=== PATIENT | male | born 1935 | race Caucasian/White ===

== ENCOUNTER 2016-06-22 14:17 | Emergency (ER) | payer MEDICARE, OTHER ==
[2016-06-22 14:36] VITALS: BP 150/85
[2016-06-22] MEDS ORDERED: NS 0.9% 1000 ML* 1,000 ML IV ONE (14:49)
--- NOTE | 2016-06-22 15:25 | RAD ---
Indication: Hematuria. Decubitus views and upright views of the abdomen demonstrate no free air. Stool is present throughout the right colon. No evidence of radiopaque calculi is noted. IMPRESSION: No free air or obstruction is noted. No abnormal calcifications are identified.
[2016-06-22 15:46] LABS: Hematocrit 50 % (42-52); Hemoglobin 16.4 g/dl (14.0-18.0); Mean Corpuscular HGB Conc 33 g/dl (31-36); Mean Corpuscular Hemoglobin 31 pg (27-31); Mean Corpuscular Volume 93 fL (80-94); Mean Platelet Volume 10 um3 (7.4-10.4); Red Blood Count 5.35 10^6/ul (4.0-5.4); Red Cell Distribution Width 14 % (10.5-15)
[2016-06-22 16:05] LABS: Chloride 101 mmol/L (101-111); Potassium 4.2 mmol/L (3.5-5.0); Sodium 136 mmol/L (133-145)
[2016-06-22 16:31] LABS: Troponin I 0.03 ng/mL (<0.04)
[2016-06-22 16:47] LABS: ALT 8 U/L (7-52); AST 16 U/L (13-39); Albumin 3.6 g/dL (3.2-5.2); Alkaline Phosphatase 82 U/L (34-104); Anion Gap 8 mmol/L (2-11); BUN/Creatinine Ratio 16.8 (8-20); Blood Urea Nitrogen 16 mg/dL (6-24); C Reactive Protein 1.45 mg/L (< 5.00); CO2 Carbon Dioxide 27 mmol/L (22-32); Calcium 11.1 mg/dL (8.6-10.3); Creatine Kinase 19 U/L (10-223); EGFR African American 97.9 (>60); EGFR Non-African American 76.1 (>60); Globulin 3.2 g/dL (2-4); Glucose 84 mg/dL (70-100); Lipase < 10 U/L (11.0-82.0); Magnesium 1.8 mg/dL (1.9-2.7); Total Protein 6.8 g/dL (6.4-8.9)
[2016-06-22 16:47] LABS: Urine Bacteria Absent (Absent); Urine Bilirubin Negative (Negative); Urine Glucose Negative (Negative); Urine Nitrite Negative (Negative)
[2016-06-22] MEDS ORDERED: Ciprofloxacin 400MG IVPREMIX(* 400 MG/200 ML BAG IVPB ONE (17:04)
--- NOTE | 2016-06-22 19:10 | ED ---
Brian Vazquez Billy, scribed for Errol Duran MD on 06/22/16 at 1444 . GI/ HPI - HPI Summary HPI Summary: Patient is an 81 year-old male coming to [facility] presenting with intermittent hematuria for 1 month. He denies any pain at this time. Nothing has made his symptoms better or worse. Denies fevers, chills, weakness, CP, SOB, abdominal pain, or any other symptoms. - History of Current Complaint Chief Complaint: EDGeneral Time Seen by Provider: 06/22/16 14:32 Stated Complaint: BLOOD IN URINE Hx Obtained From: Patient Onset/Duration: Started Weeks Ago, Still Present Timing: Intermittent Severity: Moderate Current Severity: Moderate Pain Intensity: 0 Associated Signs and Symptoms: Positive: Negative Aggravating Factor(s): Nothing Alleviating Factor(s): Nothing - Allergy/Home Medications Allergies/Adverse Reactions: Allergies Allergy/AdvReac Type Severity Reaction Status Date / Time No Known Allergies Allergy Verified 10/07/13 18:43 PMH/Surg Hx/FS Hx/Imm Hx Endocrine/Hematology History: Reports: Hx Anticoagulant Therapy - pt states he is on coumadin Denies: Hx Blood Disorders, Hx Blood Transfusions, Hx Bone Marrow Disease, Hx Diabetes, Hx Systemic Lupus Erythematosus, Hx Sickle Cell Disease, Hx Thyroid Disease, Hx Anemia, Hx Unexplained Bleeding, Other Endocrine/ Hematological Disorders Cardiovascular History: Denies: Hx Hypertension - NO HX OF Respiratory History: Reports: Hx Asthma - as a child; not active now, Hx Pleural Effusion GI History: Reports: Hx Gastrointestinal Bleed - current GI Bleed History: Reports: Hx Benign Prostatic Hyperplasia Denies: Hx Renal Disease Musculoskeletal History: Reports: Hx Back Problems, Hx Bursitis, Hx Orthopedic Injury - hx finger fx, L ankle fx, Other Musculoskeletal History - L hip fracture repair Denies: Hx Arthritis, Hx Fibromyalgia, Hx Gout, Hx Osteoporosis, Hx Scoliosis , Hx Tendonitis Sensory History: Reports: Hx Contacts or Glasses Opthamlomology History: Reports: Hx Contacts or Glasses - Cancer History Hx Chemotherapy: No Hx Radiation Therapy: No Hx Palliative Cancer Treatment: No - Surgical History Surgery Procedure, Year, and Place: hernia R abd 2001; LEFT ORIF; L ankle repair Hx Anesthesia Reactions: No Infectious Disease History: Denies: Traveled Outside the [place] in Last 30 Days - Family History Family History: Patient does not believe his parents had any chronic illnesses. - Social History Lives: With Family - sister Alcohol Use: None Substance Use Type: Reports: None Smoking Status (MU): Never Smoked Tobacco Have You Smoked in the Last Year: No Review of Systems Negative: Fever, Chills Negative: Chest Pain Negative: Shortness Of Breath Negative: Abdominal Pain Positive: hematuria All Other Systems Reviewed And Are Negative: Yes Physical Exam - Summary Physical Exam Summary: VITAL SIGNS: Reviewed. GENERAL: Patient is a cachectic male lying confortable in the strecher. . Patient is not in any acute respiratory distress. HEAD AND FACE: No signs of trauma. No ecchymosis, hematomas or skull depressions. EYES: PERRLA, EOMI x 2, No injected conjunctiva, no nystagmus. EARS: Hearing grossly intact. Ear canals and tympanic membranes are within normal limits. MOUTH: Dry oral mucosa NECK: Supple, trachea is midline, no adenopathy, no JVD CHEST: Symmetric, no tenderness at palpation LUNGS: Clear to auscultation bilaterally. No wheezing or crackles. CVS: Regular rate and rhythm, S1 and S2 present, no murmurs or gallops appreciated. ABDOMEN: Soft, non-tender. No signs of distention. No rebound no guarding, and no masses palpated. Bowel sounds are normal. EXTREMITIES: FROM in all major joints, no edema, no cyanosis or clubbing. NEURO: Alert and oriented x 3. No acute neurological deficits. Speech is normal and follows commands. SKIN: Dry and warm Triage Information Reviewed: Yes Vital Signs On Initial Exam: Initial Vitals Temp Pulse Resp BP Pulse Ox 96.5 F 85 10 150/85 98 06/22/16 14:30 06/22/16 14:30 06/22/16 14:30 06/22/16 14:30 06/22/16 14:30 Vital Signs Reviewed: Yes Diagnostics - Vital Signs Vital Signs Temp Pulse Resp BP Pulse Ox 06/22/16 14:30 96.5 F 85 10 150/85 98 - Laboratory Lab Results: Lab Results 06/22/16 06/22/16 06/22/16 Range/Units 15:39 15:39 15:39 WBC 10.0 (3.5-10.8) 10^3/ul RBC 5.35 (4.0-5.4) 10^6/ul Hgb 16.4 (14.0-18.0) g/dl Hct 50 (42-52) % MCV 93 (80-94) fL MCH 31 (27-31) pg MCHC 33 (31-36) g/dl RDW 14 (10.5-15) % Plt Count 121 L (150-450) 10^3/ul MPV 10 (7.4-10.4) um3 Neut % (Auto) 79.0 (38-83) % Lymph % (Auto) 11.2 L (25-47) % [place] % (Auto) 7.2 (1-9) % Eos % (Auto) 2.0 (0-6) % Baso % (Auto) 0.6 (0-2) % Absolute Neuts (auto) 7.9 H (1.5-7.7) 10^3/ul Absolute Lymphs (auto) 1.1 (1.0-4.8) 10^3/ul Absolute Monos (auto) 0.7 (0-0.8) 10^3/ul Absolute Eos (auto) 0.2 (0-0.6) 10^3/ul Absolute Basos (auto) 0.1 (0-0.2) 10^3/ul Absolute Nucleated RBC 0.01 10^3/ul Nucleated RBC % 0.1 Sodium 136 (133-145) mmol/L Potassium 4.2 (3.5-5.0) mmol/L Chloride 101 (101-111) mmol/L Carbon Dioxide Pending Anion Gap Pending BUN Pending Creatinine Pending Est GFR ( Amer) Pending Est GFR (Non-Af Amer) Pending BUN/Creatinine Ratio Pending Glucose Pending Calcium Pending Magnesium Pending Total Bilirubin Pending AST Pending ALT Pending Alkaline Phosphatase Pending Total Creatine Kinase Pending Troponin I Pending C-Reactive Protein Pending B-Natriuretic Peptide 174 H ( - 100) pg/mL Total Protein Pending Albumin Pending Globulin Pending Albumin/Globulin Ratio Pending Lipase Pending Result Diagrams: 06/22/16 15:39 06/22/16 15:39 Lab Statement: Any lab studies that have been ordered have been reviewed, and results considered in the medical decision making process. - Radiology abd xr Radiology Interpretation Completed By: Radiologist - No free air or obstruction is noted. No abnormal calcifications are identified. - EKG 1545 EKG Interpretation: afib 48 bpm, ST depressions in V4-V6. GIGU Course/Dx - Course Assessment/Plan: Patient is an 81 year-old male coming to [facility] presenting with intermittent hematuria for 1 month. He denies any pain at this time. Nothing has made his symptoms better or worse. Denies fevers, chills, weakness, CP, SOB , abdominal pain, or any other symptoms. Bloodwork WNL except for platelets of 121, calcium 11.1, and magnesium 11.8. Trop is 0.03. UA 2+ protein, 3+ blood, increased RBC. Abdominal X-ray shows no acute pathology. Because of the urinary symptoms, I decided to place the patient on antibiotics. The patient is feeling better. He was hydrated. He is eating/drinking and ambulating on his own. Therefore he will be discharged home to follow up with PCP. He was instructed to return to the ER with any developing fevers, chills, hematuria, or any other complaints. He is hemodynamically stable, A&Ox3. - Diagnoses Differential Diagnoses - Male: Other - Hematuria, UTI Provider Diagnoses: Urinary tract infection - Physician Notifications Discussed Care Of Patient With: Dr. Canales (hospitalist) @ [id number]: informed of the patient's presentation. Discharge - Discharge Plan Condition: Stable Disposition: HOME Prescriptions: Ciprofloxacin TAB* [Cipro Tab*] 500 mg PO BID #10 tab Patient Education Materials: Urinary Tract Infection in Men (ED) Referrals: Hoda Norton MD [Primary Care Provider] - The documentation as recorded by the Brian collins Billy accurately reflects the service I personally performed and the decisions made by me, Errol Duran MD.
== END 2016-06-22 20:31 | disposition home or self-care (01) ==
LOC: ED 14:17
DX: N39.0 Urinary tract infection, site not specified (principal); R31.9 Hematuria, unspecified
CPT/HCPCS: 36415; 74020; 80053; 81003; 81015; 82550; 83605; 83690; 83735; 83880; 84484; 85025; 86140; 87077; 87086; 87186; 93005; 96365; 99282; J0744

== ENCOUNTER 2016-07-02 12:33 | Emergency (ER) | payer MEDICARE, OTHER ==
[2016-07-02 13:49] LABS: Hematocrit 45 % (42-52); Hemoglobin 14.8 g/dl (14.0-18.0); Mean Corpuscular HGB Conc 33 g/dl (31-36); Mean Corpuscular Hemoglobin 31 pg (27-31); Mean Corpuscular Volume 93 fL (80-94); Mean Platelet Volume 10 um3 (7.4-10.4); Red Blood Count 4.79 10^6/ul (4.0-5.4); Red Cell Distribution Width 14 % (10.5-15); White Blood Count 6.3 10^3/ul (3.5-10.8)
[2016-07-02 14:00] LABS: BUN/Creatinine Ratio 15.7 (8-20); Calcium 10.9 mg/dL (8.6-10.3); EGFR African American 90.1 (>60); EGFR Non-African American 70.1 (>60); Potassium 3.8 mmol/L (3.5-5.0)
[2016-07-02] MEDS ORDERED: Sulfamethox/Trimethoprim DS 800/160* TAB PO ONE (15:04)
[2016-07-02 16:51] LABS: Urine Bacteria Absent (Absent); Urine Bilirubin Negative (Negative); Urine Glucose Negative (Negative); Urine Nitrite Negative (Negative)
[2016-07-02 17:02] VITALS: BP 120/72
--- NOTE | 2016-07-07 07:07 | PN ---
Progress Note - Progress Note Note: Patient blood cultures grew Staphylococcus epidermidis which could be contaminant. Patient placed on Bactrim at d/c which will cover this organism and the UTI so no further action needed.
--- NOTE | 2016-07-14 21:13 | ED ---
Clarke Vazquez Soohyun, scribed for Felipe Machuca MD on 07/02/16 at 1454 . GI/ HPI - HPI Summary HPI Summary: This 81 y/o male presents to ED for blood noted in Malloy today. Pt was seen 10 days ago for UTI and was sent home with Cipro. Pt is currently denying any fever , abd pain, or n/v/d. 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 Wil blood is noted in Malloy and urine bag without any clot is noted at time of initial evaluation. Per EMR from 06/22/2016, pt is currently on Coumadin. - History of Current Complaint Chief Complaint: EDUrogenitalProblems Time Seen by Provider: 07/02/16 13:21 Stated Complaint: BLOOD IN CATHETER Hx Obtained From: Patient, Medical Records Onset/Duration: Started Weeks Ago, Atraumatic, Still Present Timing: Constant Pain Intensity: 0 Location of Pain: None Associated Signs and Symptoms: Positive: Hematuria. Negative: Nausea, Vomiting , Fever, Abdominal Pain - Allergy/Home Medications Allergies/Adverse Reactions: Allergies Allergy/AdvReac Type Severity Reaction Status Date / Time No Known Allergies Allergy Verified 10/07/13 18:43 PMH/Surg Hx/FS Hx/Imm Hx Endocrine/Hematology History: Reports: Hx Anticoagulant Therapy - pt states he is on coumadin Denies: Hx Blood Disorders, Hx Blood Transfusions, Hx Bone Marrow Disease, Hx Diabetes, Hx Systemic Lupus Erythematosus, Hx Sickle Cell Disease, Hx Thyroid Disease, Hx Anemia, Hx Unexplained Bleeding, Other Endocrine/ Hematological Disorders Cardiovascular History: Denies: Hx Hypertension - NO HX OF Respiratory History: Reports: Hx Asthma - as a child; not active now, Hx Pleural Effusion GI History: Reports: Hx Gastrointestinal Bleed - current GI Bleed History: Reports: Hx Benign Prostatic Hyperplasia Denies: Hx Renal Disease Musculoskeletal History: Reports: Hx Back Problems, Hx Bursitis, Hx Orthopedic Injury - hx finger fx, L ankle fx, Other Musculoskeletal History - L hip fracture repair Denies: Hx Arthritis, Hx Fibromyalgia, Hx Gout, Hx Osteoporosis, Hx Scoliosis , Hx Tendonitis Sensory History: Reports: Hx Contacts or Glasses Opthamlomology History: Reports: Hx Contacts or Glasses - Cancer History Hx Chemotherapy: No Hx Radiation Therapy: No Hx Palliative Cancer Treatment: No - Surgical History Surgery Procedure, Year, and Place: hernia R abd 2002; LEFT ORIF; L ankle repair Hx Anesthesia Reactions: No Infectious Disease History: No Infectious Disease History: Denies: Traveled Outside the [place] in Last 30 Days - Family History Known Family History: Negative: Cardiac Disease, Hypertension, Diabetes Family History: Patient does not believe his parents had any chronic illnesses. - Social History Alcohol Use: None Hx Substance Use: No Substance Use Type: Reports: None Hx Tobacco Use: No Smoking Status (MU): Never Smoked Tobacco Have You Smoked in the Last Year: No Review of Systems Negative: Fever Negative: Blurred Vision, Erythema Negative: Sore Throat Negative: Chest Pain Negative: Shortness Of Breath, Cough Negative: Abdominal Pain Positive: hematuria - malloy cath noted with blood Negative: Myalgia, Edema Neurological: Other - negative dizziness Negative: Anxious, Depressed All Other Systems Reviewed And Are Negative: Yes Physical Exam - Summary Physical Exam Summary: Constitutional: Well-developed, Well-nourished, Alert. (-) Distressed Skin: Warm, Dry HENT: Normocephalic; Atraumatic Eyes: Conjunctiva normal Neck: Musculoskeletal ROM normal neck. (-) JVD, (-) Stridor, (-) Tracheal deviation Cardio: Rhythm regular, rate normal, Heart sounds normal; Intact distal pulses; The pedal pulses are 2+ and symmetric. Radial pulses are 2+ and symmetric. (-) Murmur Pulmonary/Chest wall: Effort normal. (-) Respiratory distress, (-) Wheezes, (-) Rales Abd: Soft, (-) Tenderness, (-) Distension, (-) Guarding, (-) Rebound : Wil blood noted without clots in malloy cath and urine bag. Musculoskeletal: (-) Edema Lymph: (-) Cervical adenopathy Neuro: Alert, Oriented x3 Psych: Mood and affect Normal Triage Information Reviewed: Yes Vital Signs On Initial Exam: Initial Vitals Temp Pulse Resp BP Pulse Ox 97.4 F 51 18 144/80 98 07/02/16 13:36 07/02/16 13:36 07/02/16 13:36 07/02/16 13:36 07/02/16 13:36 Vital Signs Reviewed: Yes Diagnostics - Vital Signs Vital Signs Temp Pulse Resp BP Pulse Ox 07/02/16 13:36 97.4 F 51 18 144/80 98 - Laboratory Lab Results: Lab Results 07/02/16 07/02/16 Range/Units 13:20 13:20 WBC 6.3 (3.5-10.8) 10^3/ul RBC 4.79 (4.0-5.4) 10^6/ul Hgb 14.8 (14.0-18.0) g/dl Hct 45 (42-52) % MCV 93 (80-94) fL MCH 31 (27-31) pg MCHC 33 (31-36) g/dl RDW 14 (10.5-15) % Plt Count 121 L (150-450) 10^3/ul MPV 10 (7.4-10.4) um3 Sodium 139 (133-145) mmol/L Potassium 3.8 (3.5-5.0) mmol/L Chloride 103 (101-111) mmol/L Carbon Dioxide 32 (22-32) mmol/L Anion Gap 4 (2-11) mmol/L BUN 16 (6-24) mg/dL Creatinine 1.02 (0.67-1.17) mg/dL Est GFR ( Amer) 90.1 (>60) Est GFR (Non-Af Amer) 70.1 (>60) BUN/Creatinine Ratio 15.7 (8-20) Glucose 94 (70-100) mg/dL Calcium 10.9 H (8.6-10.3) mg/dL Result Diagrams: 07/02/16 13:20 07/02/16 13:20 Lab Statement: Any lab studies that have been ordered have been reviewed, and results considered in the medical decision making process. GIGU Course/Dx - Diagnoses Provider Diagnoses: Hemorrhagic cystitis - Physician Notifications Discussed Care Of Patient With: Dr. Monzon (Urologist) at 1502 PM -- recommends finding out who put in the malloy cath, removing Malloy, changing Abx, and discontinuing Pradexa if in agreement with manager stone. Dr. Meadows (PCP) at 1610 PM -- agrees that pt can discontinue pradexa for next several days. Abx is changed from Cipro to Bactrim. Pt is to follow up with Dr. Meadows in next 3-4 days. Pt and his family are informed with increased risk of CVA with discontinued anticoagulants. They express understanding. Time Discussed With Above Provider: 15:02 Discharge - Discharge Plan Condition: Stable Disposition: HOME Prescriptions: Sulfamethox/Trimethoprim DS* [Bactrim DS 800/160 TAB*] 1 tab PO BID #20 tab Patient Education Materials: Malloy Catheter Placement and Care (ED), Urinary Tract Infection in Men (ED) Referrals: Hoda Norton MD [Primary Care Provider] - The documentation as recorded by the Clarke collins Soohyun accurately reflects the service I personally performed and the decisions made by Sven iverson Jerry, MD.
== END 2016-07-02 16:57 | disposition home or self-care (01) ==
LOC: ED 12:33
DX: N30.90 Cystitis, unspecified without hematuria (principal); Z79.01 Long term (current) use of anticoagulants; N40.0 Benign prostatic hyperplasia without lower urinary tract symptoms; I48.91 Unspecified atrial fibrillation; I69.354 Hemiplegia and hemiparesis following cerebral infarction affecting left non-dominant side
CPT/HCPCS: 36415; 80048; 81003; 81015; 85027; 85610; 85730; 87040; 87077; 87150; 87205; 99282; A9270-GY

== ENCOUNTER 2016-07-14 11:15 | Inpatient (IN) | payer MEDICARE, OTHER ==
[2016-07-14 12:16] LABS: Hematocrit 47 % (42-52); Hemoglobin 15.5 g/dl (14.0-18.0); Mean Corpuscular HGB Conc 33 g/dl (31-36); Mean Corpuscular Hemoglobin 31 pg (27-31); Mean Corpuscular Volume 93 fL (80-94); Mean Platelet Volume 10 um3 (7.4-10.4); Red Blood Count 4.99 10^6/ul (4.0-5.4); Red Cell Distribution Width 15 % (10.5-15); White Blood Count 6.5 10^3/ul (3.5-10.8)
[2016-07-14 12:31] LABS: ALT 7 U/L (7-52); AST 13 U/L (13-39); Albumin 3.6 g/dL (3.2-5.2); Alkaline Phosphatase 77 U/L (34-104); Anion Gap 4 mmol/L (2-11); BUN/Creatinine Ratio 14.9 (8-20); Blood Urea Nitrogen 17 mg/dL (6-24); C Reactive Protein < 1.00 mg/L (< 5.00); CO2 Carbon Dioxide 29 mmol/L (22-32); Calcium 10.9 mg/dL (8.6-10.3); Chloride 102 mmol/L (101-111); Creatine Kinase 17 U/L (10-223); EGFR African American 79.3 (>60); EGFR Non-African American 61.7 (>60); Glucose 82 mg/dL (70-100); Lipase < 10 U/L (11.0-82.0); Magnesium 1.7 mg/dL (1.9-2.7); Potassium 4.2 mmol/L (3.5-5.0); Sodium 135 mmol/L (133-145); Total Protein 6.6 g/dL (6.4-8.9)
[2016-07-14 12:33] LABS: Troponin I 0.02 ng/mL (<0.04)
[2016-07-14 12:38] LABS: Urine Bacteria Absent (Absent); Urine Bilirubin Negative (Negative); Urine Glucose Negative (Negative); Urine Nitrite Negative (Negative)
[2016-07-14] MEDS ORDERED: Magnesium Sulfate 2 GM IV* 2 GM/50 ML BAG IVPB ONE (12:38)
--- NOTE | 2016-07-14 12:41 | RAD ---
INDICATION: Weakness. COMPARISON: Comparison is made with a prior CT of the brain from July 10, 2013. TECHNIQUE: Contiguous axial sections of the brain were obtained from the skull base to the vertex without contrast. FINDINGS: The ventricles, cisterns and sulci are enlarged consistent with diffuse atrophy. There are old lacunar infarcts present within the right lentiform nucleus and right periventricular white matter. In addition there are multiple small areas of decreased attenuation in the periventricular and subcortical white matter most consistent with mild chronic small vessel ischemic changes. No other focal abnormalities or mass effect are seen. There is no evidence for hemorrhage. No significant focal osseous abnormality is seen. The visualized portion of the paranasal sinuses and mastoid air cells appear clear. IMPRESSION: 1. NO EVIDENCE FOR ACUTE FINDING. 2. 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
--- NOTE | 2016-07-14 12:47 | RAD ---
INDICATION: Weakness. COMPARISON: Comparison is made with a prior chest x-ray study from October 07, 2013. TECHNIQUE: A portable view of the chest was obtained. FINDINGS: The heart appears moderately enlarged and unchanged from the prior exam. There is elevation of the right hemidiaphragm which is a unchanged. The lungs appear grossly clear. No pleural effusion is seen. IMPRESSION: NO EVIDENCE FOR ACUTE FINDING.
[2016-07-14] MEDS ORDERED: Ondansetron INJ* 2 MG/ML VIAL IV PRN (13:37)
[2016-07-14] MEDS ORDERED: Acetaminophen TAB* 325 MG PO PRN (13:37)
--- NOTE | 2016-07-14 14:19 | ED ---
Clarke Vazquez Soohyun, scribed for Clinton Andino MD on 07/14/16 at 1204 . Complex/Multi-Sys Presentation - HPI Summary HPI Summary: This 81 y/o male presents to ED for persistent general weakness since 2 weeks ago. Pt states that he "can't walk", but denies any dysuria, chest congestion, fever, or chills. He appears to be able to move all extremities at time of initial evaluation. PMHx includes left sided CVA, a-fib, left hip repair, poor balance, and indwelling catheter. Pt currently lives with his sister. Plan of care involving possible admission is discussed with pt. - History Of Current Complaint Time Seen by Provider: 07/14/16 11:18 Hx Obtained From: Patient, Medical Records Onset/Duration: Lasting Weeks - 2 weeks ago, Still Present Timing: Constant Severity Currently: Moderate Severity Initially: Moderate Associated Signs And Symptoms: Positive: Weakness - general. Negative: Dysuria - Allergies/Home Medications Allergies/Adverse Reactions: Allergies Allergy/AdvReac Type Severity Reaction Status Date / Time No Known Allergies Allergy Verified 07/14/16 11:51 PMH/Surg Hx/FS Hx/Imm Hx Endocrine/Hematology History: Reports: Hx Anticoagulant Therapy - pt states he is on coumadin Denies: Hx Blood Disorders, Hx Blood Transfusions, Hx Bone Marrow Disease, Hx Diabetes, Hx Systemic Lupus Erythematosus, Hx Sickle Cell Disease, Hx Thyroid Disease, Hx Anemia, Hx Unexplained Bleeding, Other Endocrine/ Hematological Disorders Cardiovascular History: Denies: Hx Hypertension - NO HX OF Respiratory History: Reports: Hx Asthma - as a child; not active now, Hx Pleural Effusion GI History: Reports: Hx Gastrointestinal Bleed - current GI Bleed History: Reports: Hx Benign Prostatic Hyperplasia Denies: Hx Renal Disease Musculoskeletal History: Reports: Hx Back Problems, Hx Bursitis, Hx Orthopedic Injury - hx finger fx, L ankle fx, Other Musculoskeletal History - L hip fracture repair Denies: Hx Arthritis, Hx Fibromyalgia, Hx Gout, Hx Osteoporosis, Hx Scoliosis , Hx Tendonitis Sensory History: Reports: Hx Contacts or Glasses Opthamlomology History: Reports: Hx Contacts or Glasses - Cancer History Hx Chemotherapy: No Hx Radiation Therapy: No Hx Palliative Cancer Treatment: No - Surgical History Surgery Procedure, Year, and Place: hernia R abd 2002; LEFT ORIF; L ankle repair Hx Anesthesia Reactions: No - Family History Family History: Patient does not believe his parents had any chronic illnesses. - Social History Alcohol Use: None Substance Use Type: Reports: None Smoking Status (MU): Never Smoked Tobacco Have You Smoked in the Last Year: No Review of Systems Negative: Fever, Chills Neurological: Other - Positive -- "can't walk" Positive: Weakness - general Negative: Anxious, Depressed All Other Systems Reviewed And Are Negative: Yes Physical Exam Triage Information Reviewed: Yes Vital Signs On Initial Exam: Initial Vitals Temp Pulse Resp BP Pulse Ox 97.1 F 48 22 130/73 99 07/14/16 11:18 07/14/16 11:18 07/14/16 11:18 07/14/16 11:18 07/14/16 11:18 Vital Signs Reviewed: Yes Appearance: Positive: Ill-Appearing - mildly Skin: Positive: Cold Head/Face: Positive: Normal Head/Face Inspection Eyes: Positive: EOMI, CORDELL ENT: Positive: Other - dry oral mucosa Respiratory/Lung Sounds: Positive: Clear to Auscultation, Breath Sounds Present Cardiovascular: Positive: RRR, Pulses are Symmetrical in both Upper and Lower Extremities Musculoskeletal: Positive: Strength/ROM Intact - COELLO Neurological: Positive: Sensory/Motor Intact - COELLO, Alert, Oriented to Person Place, Time. Negative: Focal Deficit @ Psychiatric: Positive: Affect/Mood Appropriate AVPU Assessment: Alert Diagnostics - Vital Signs Vital Signs Temp Pulse Resp BP Pulse Ox 07/14/16 14:11 97.3 F 46 14 114/58 07/14/16 14:00 114/58 07/14/16 13:44 14 153/127 07/14/16 13:00 24 07/14/16 12:30 17 07/14/16 11:47 97.2 F 48 14 125/64 97 07/14/16 11:18 97.1 F 48 22 130/73 99 - Laboratory Lab Results: Lab Results 07/14/16 07/14/16 07/14/16 Range/Units 12:05 12:05 12:05 WBC 6.5 (3.5-10.8) 10^3/ul RBC 4.99 (4.0-5.4) 10^6/ul Hgb 15.5 (14.0-18.0) g/dl Hct 47 (42-52) % MCV 93 (80-94) fL MCH 31 (27-31) pg MCHC 33 (31-36) g/dl RDW 15 (10.5-15) % Plt Count 142 L (150-450) 10^3/ul MPV 10 (7.4-10.4) um3 Neut % (Auto) 74.0 (38-83) % Lymph % (Auto) 13.6 L (25-47) % [place] % (Auto) 7.4 (1-9) % Eos % (Auto) 3.8 (0-6) % Baso % (Auto) 1.2 (0-2) % Absolute Neuts (auto) 4.8 (1.5-7.7) 10^3/ul Absolute Lymphs (auto) 0.9 L (1.0-4.8) 10^3/ul Absolute Monos (auto) 0.5 (0-0.8) 10^3/ul Absolute Eos (auto) 0.2 (0-0.6) 10^3/ul Absolute Basos (auto) 0.1 (0-0.2) 10^3/ul Absolute Nucleated RBC 0 10^3/ul Nucleated RBC % 0.1 INR (Anticoag Therapy) 1.91 H (0.89-1.11) APTT 85.1 H (26.0-36.3) seconds Sodium (133-145) mmol/L Potassium (3.5-5.0) mmol/L Chloride (101-111) mmol/L Carbon Dioxide (22-32) mmol/L Anion Gap (2-11) mmol/L BUN (6-24) mg/dL Creatinine (0.67-1.17) mg/dL Est GFR ( Amer) (>60) Est GFR (Non-Af Amer) (>60) BUN/Creatinine Ratio (8-20) Glucose (70-100) mg/dL Lactic Acid (0.5-2.0) mmol/L Calcium (8.6-10.3) mg/dL Magnesium (1.9-2.7) mg/dL Total Bilirubin (0.2-1.0) mg/dL AST (13-39) U/L ALT (7-52) U/L Alkaline Phosphatase (34-104) U/L Total Creatine Kinase (10-223) U/L CK-MB (CK-2) (0.6-6.3) ng/mL Troponin I (<0.04) ng/mL C-Reactive Protein (< 5.00) mg/L B-Natriuretic Peptide ( - 100) pg/mL Total Protein (6.4-8.9) g/dL Albumin (3.2-5.2) g/dL Globulin (2-4) g/dL Albumin/Globulin Ratio (1-3) Lipase (11.0-82.0) U/L TSH Urine Color [place]ia Urine Appearance Cloudy Urine pH 5.0 (5-9) Ur Specific [place] 1.014 (1.010-1.030) Urine Protein 2+(100 mg/dl) H (Negative) Urine Ketones Negative (Negative) Urine Blood 3+ H (Negative) Urine Nitrate Negative (Negative) Urine Bilirubin Negative (Negative) Urine Urobilinogen Negative (Negative) Ur Leukocyte Esterase Trace H (Negative) Urine WBC (Auto) Trace(0-5/hpf) (Absent) Urine RBC (Auto) 3+(>10/hpf) H (Absent) Ur Squamous Epith Cells Present H (Absent) Urine Bacteria Absent (Absent) Urine Glucose Negative (Negative) Urine Ascorbic Acid * H (Negative) Digoxin 07/14/16 07/14/16 07/14/16 Range/Units 12:05 12:05 12:05 WBC (3.5-10.8) 10^3/ul RBC (4.0-5.4) 10^6/ul Hgb (14.0-18.0) g/dl Hct (42-52) % MCV (80-94) fL MCH (27-31) pg MCHC (31-36) g/dl RDW (10.5-15) % Plt Count (150-450) 10^3/ul MPV (7.4-10.4) um3 Neut % (Auto) (38-83) % Lymph % (Auto) (25-47) % [place] % (Auto) (1-9) % Eos % (Auto) (0-6) % Baso % (Auto) (0-2) % Absolute Neuts (auto) (1.5-7.7) 10^3/ul Absolute Lymphs (auto) (1.0-4.8) 10^3/ul Absolute Monos (auto) (0-0.8) 10^3/ul Absolute Eos (auto) (0-0.6) 10^3/ul Absolute Basos (auto) (0-0.2) 10^3/ul Absolute Nucleated RBC 10^3/ul Nucleated RBC % INR (Anticoag Therapy) (0.89-1.11) APTT (26.0-36.3) seconds Sodium 135 (133-145) mmol/L Potassium 4.2 (3.5-5.0) mmol/L Chloride 102 (101-111) mmol/L Carbon Dioxide 29 (22-32) mmol/L Anion Gap 4 (2-11) mmol/L BUN 17 (6-24) mg/dL Creatinine 1.14 (0.67-1.17) mg/dL Est GFR ( Amer) 79.3 (>60) Est GFR (Non-Af Amer) 61.7 (>60) BUN/Creatinine Ratio 14.9 (8-20) Glucose 82 (70-100) mg/dL Lactic Acid 1.4 (0.5-2.0) mmol/L Calcium 10.9 H (8.6-10.3) mg/dL Magnesium 1.7 L (1.9-2.7) mg/dL Total Bilirubin 0.60 (0.2-1.0) mg/dL AST 13 (13-39) U/L ALT 7 (7-52) U/L Alkaline Phosphatase 77 (34-104) U/L Total Creatine Kinase 17 (10-223) U/L CK-MB (CK-2) 2.6 (0.6-6.3) ng/mL Troponin I 0.02 (<0.04) ng/mL C-Reactive Protein < 1.00 (< 5.00) mg/L B-Natriuretic Peptide 224 H ( - 100) pg/mL Total Protein 6.6 (6.4-8.9) g/dL Albumin 3.6 (3.2-5.2) g/dL Globulin 3.0 (2-4) g/dL Albumin/Globulin Ratio 1.2 (1-3) Lipase < 10 L (11.0-82.0) U/L TSH Pending Urine Color Urine Appearance Urine pH (5-9) Ur Specific [place] (1.010-1.030) Urine Protein (Negative) Urine Ketones (Negative) Urine Blood (Negative) Urine Nitrate (Negative) Urine Bilirubin (Negative) Urine Urobilinogen (Negative) Ur Leukocyte Esterase (Negative) Urine WBC (Auto) (Absent) Urine RBC (Auto) (Absent) Ur Squamous Epith Cells (Absent) Urine Bacteria (Absent) Urine Glucose (Negative) Urine Ascorbic Acid (Negative) Digoxin Pending Result Diagrams: 07/14/16 12:05 07/14/16 12:05 Lab Statement: Any lab studies that have been ordered have been reviewed, and results considered in the medical decision making process. - Radiology CXR Xray Interpretation: No Acute Changes Radiology Interpretation Completed By: Radiologist - CT Brain CT Interpretation: No Acute Changes CT Interpretation Completed By: Radiologist - EKG 1254 EKG Rhythm: Atrial Fibrillation - 51 bpm Re-Evaluation - Re-Evaluation First Eval Re-Evaluation Time: 12:54 Comment: MD in room to update pt on imaging and bloodwork results. Plan of care discussed. Complex Multi-Symp Course/Dx Assessment/Plan: ADMIT HOSPITALIST STABLE. - Diagnoses Provider Diagnoses: generalized weakness - Physician Notifications Discussed Care Of Patient With: Dr. Venegas (Hospitalist) at 1310 PM Time Discussed With Above Provider: 13:10 Discharge - Discharge Plan Condition: Guarded Disposition: ADMITTED TO [facility] Referrals: Hoda Norton MD [Primary Care Provider] - The documentation as recorded by the Clarke collins Soohyun accurately reflects the service I personally performed and the decisions made by me, Clinton Andino MD.
[2016-07-14] MEDS: NS 0.9% 1000 ML* 1,000 ML IV SCH (14:40)
[2016-07-14 14:50] LABS: Digoxin 1.2 ng/ml (0.8-2.0)
--- NOTE | 2016-07-14 15:49 | HP ---
HISTORY AND PHYSICAL: DATE OF ADMISSION: 07/14/16 PRIMARY CARE PROVIDER: Dr. Juan Connell. ATTENDING PHYSICIAN WHILE IN THE HOSPITAL: Dr. Pilar Venegas *(report dictated by Jean-Pierre Leigh NP). CHIEF COMPLAINT: Weakness. HISTORY OF PRESENT ILLNESS: Mr. Gallego is an 81-year-old male patient who has a history of hypertension, AFib, history of CVA, BPH, GERD, urinary retention, and GI bleed. He has had recurrent UTIs, most recently on the 22 of June , was diagnosed with MRSA urinary tract infection. The patient comes in today, in the last 2 weeks, he has noted he has had progressing worsening weakness. The patient's sister, who lives with him, states last night his legs had just given out in both legs and they are weak. He could not stand. His other brother had to help him get in to bed. He could not get up today because he just was too weak and tired. The patient's sister called 911. His sister states that there has not been any changes in medications with the exception that he recently was placed back again on another course of Bactrim, which his MRSA was sensitive to. There has been no reports of fevers, chills, no abdominal pain. Denies having any pain around his catheter. He denies having any fevers or chills. There has been no nausea or vomiting and there has been no abdominal discomfort. The patient came in to the ER and was evaluated. It was noted that his resting heart rate was at 48. In addition to this, it was also noted that he was weak. There was no obvious reason for his weakness, but the hospitalist service was asked to evaluate as it was felt that the patient would not do well at home given his current condition. PAST MEDICAL HISTORY: Significant for: 1. Hypertension. 2. AFib. 3. CVA. 4. BPH. 5. GERD. 6. Urinary retention. 7. GI bleed. PAST SURGICAL HISTORY: The patient has had an ORIF of his hip. He has had a right hernia repair. FAMILY HISTORY: Reviewed. He states that, to his knowledge, his parents did not have heart disease or diabetes, and otherwise is noncontributory. SOCIAL HISTORY: He does not smoke. He does not drink. He lives with his sister, Es, who is his healthcare proxy. ALLERGIES TO MEDICATIONS: No known drug allergies. HOME MEDICATIONS: His home meds, according to Es, I called her at home and she read the medications to me, include: 1. Digoxin 125 mcg p.o. daily. 2. Oxybutynin XL 15 mg daily. 3. Diltiazem 120 mg p.o. daily. 4. Metoprolol 25 mg p.o. b.i.d. 5. Bactrim DS 1 tablet p.o. b.i.d. 6. Vitamin B one tablet daily. 7. Pradaxa 150 mg p.o. b.i.d. REVIEW OF SYSTEMS: There is no documented fever. No significant weight change. No double vision. No ear discharge. There is no rhinorrhea. No sore throat. No thyroid enlargement. No chest pain. No orthopnea. No nocturnal dyspnea. There is no abdominal pain. No nausea, no vomiting. No dysuria. No frequency. No loss of consciousness. No pruritus and no skin ulcerations. Review of 14 systems completed, all others negative. PHYSICAL EXAMINATION GENERAL: At this time, Mr. Gallego is an 81-year-old male patient. He appears to be chronically ill-appearing. He is sitting in the ER stretcher. He does not appear to be in any acute distress. VITAL SIGNS: Blood pressure 125/64, pulse of 48, respirations 18, O2 sat 97%, temperature 97.2. HEENT: Head atraumatic. Eyes: EOMs intact. Sclerae anicteric. Throat: Oral mucosa appears to be dry, no oropharyngeal erythema. NECK: Supple. HEART: Sounds S1, S2. Irregularly irregular rate and rhythm. He is bradycardic. No murmurs, rubs or gallops. LUNGS: Clear to auscultation. No wheezes, rales or rhonchi. ABDOMEN: Soft, flat, nontender. Bowel sounds present. EXTREMITIES: Pulses were 2+ throughout. He has weakness. He has about 3/5 strength on the left side, but he is able to move all 4 extremities. NEUROLOGIC: He is awake. He is alert. He is oriented x3. His rate and cost analyst is a little off on the left compared to the right. He has no other gross focal deficits. SKIN: Intact. LABORATORY DATA: Labs today revealed a WBC of 6.5, RBC of 4.99, hemoglobin 15.5, hematocrit 47, platelet count of 142. INR was 1.91. PTT at 85.1. Sodium 135, potassium 4.2, chloride 102, bicarb 29, BUN 17, creatinine 1.14, glucose 82, lactate 1.4, mag 1.7 which was replaced here in the ED, total bilirubin 0.6, AST 13, ALT 7, alk phos 77. His troponin was 0.02, albumin was 3.6. Lipase less than 10. TSH pending. Urine showed 2+ protein, 3+ blood, trace leukocyte esterase, 2+ rbc. Toxicology is pending for dig level. He had a chest x-ray obtained today which when I reviewed it, I did not appreciate any acute infiltrates or effusion. Radiology read as no evidence of acute findings. He had a brain CT obtained today as well, which showed no evidence of acute finding, atrophy, multiple old lacunar infarcts, findings consistent with chronic small vessel ischemic changes. He had an EKG obtained today as well, which showed sinus bradycardia, rate of 51 , with diffuse ST depression which is consistent with his previous EKGs. Old medical records were reviewed. ASSESSMENT AND PLAN: Mr. Gallego is an 81-year-old male patient coming into the ER today with complaints of weakness. He is evaluated in the ER, there was concern for the weakness. Hospitalist service was asked to evaluate for admission. He will be admitted under inpatient status for: 1. Weakness: At this point, I will go ahead and get a flu swab. We will check a dig level. I do not believe that the patient is going to be discharged in 48 hours. I think he is going to need further services at home. I put a Social Work consult in. I do not have an obvious reason for his weakness at this point, but I would like to again continue checking other things such as TSH , digoxin level, flu swabbing him. We will get PT involved and social work to see how he progresses, and I am going to go ahead and hydrate him. 2. Hematuria. Probably related to his recent UTIs. I am going to give him some fluids overnight. If this does not start to clear up with IV fluids, may need to consider getting a Urology consult. I do want to continue his Pradaxa despite the hematuria because he is such a high risk for CVA with a history of AFib and hypertension, he has a high CHADS score. So I would like to continue the Pradaxa. 3. AFib with bradycardia. I am going to cut back on his metoprolol. Certainly this may be contributing to the weakness, we will check that dig level. We will continue the digoxin and the diltiazem for now, but what we need is to consider cutting back more on these medications. I did not want to stop the metoprolol suddenly as this may cause rebound tachycardia, which could be just as detrimental. 4. History of cerebrovascular accident, continue with secondary prevention. 5. Benign prostatic hypertrophy, continue with his meds as prescribed. 6. Care. Continue supportive care. 6. Urinary retention. He has chronic catheter which was changed in the ER. 7. DVT prophylaxis. He is on Pradaxa. 8. Code status: He wishes to be a DNR. 9. Fluid, electrolytes and nutrition. He can have a heart healthy diet. TIME SPENT: On the admission approximately 60 minutes; greater than half the time was spent [id number] with the patient obtaining my history and physical, the other half time was spent going over the plan of care with the patient and implementing plan of care. I did discuss the plan of care with my attending, Dr. Venegas; she is in agreement. JEAN-PIERRE LEIGH NP CC: Dr. Connell* [id number]/[facility] #: [id number] SON
[2016-07-14] MEDS ORDERED: Magnesium Hydroxide LIQ* 30 ML UDC PO ONE (16:53)
[2016-07-14] MEDS: Docusate CAP* 100 MG PO SCH (21:52)
[2016-07-14] MEDS: CMC:Dabigatran CAP(NF) 150 MG CAP PO SCH (21:52)
[2016-07-14] MEDS: Senna TAB PO SCH (21:52)
[2016-07-14] MEDS: Sulfamethox/Trimethoprim DS 800/160* TAB PO SCH (21:52)
[2016-07-14] MEDS: Metoprolol Tartrate TAB* 25 MG PO SCH (21:54)
[2016-07-15] MEDS: NS 0.9% 1000 ML* 1,000 ML IV SCH ×2 (04:49→16:36)
[2016-07-15 05:45] LABS: Hematocrit 41 % (42-52); Hemoglobin 13.8 g/dl (14.0-18.0); Mean Corpuscular HGB Conc 34 g/dl (31-36); Mean Corpuscular Hemoglobin 31 pg (27-31); Mean Corpuscular Volume 92 fL (80-94); Mean Platelet Volume 10 um3 (7.4-10.4); Red Blood Count 4.42 10^6/ul (4.0-5.4); Red Cell Distribution Width 14 % (10.5-15); White Blood Count 8.1 10^3/ul (3.5-10.8)
[2016-07-15 05:58] LABS: Calcium 10.3 mg/dL (8.6-10.3); EGFR African American 85.3 (>60); EGFR Non-African American 66.3 (>60); Potassium 4.8 mmol/L (3.5-5.0)
--- NOTE | 2016-07-15 09:34 | PN ---
Subjective Date of Service: 07/15/16 Interval History: Patient seen and examined at bedside. He is sitting up in bed eating breakfast. He denies CP, SOB, abd pain, n/v. He states, "I feel weak" when asked to elaborate on why he is here in the hospital. He also states, "I can't stand." He reports living at home with his sister. Nursing reports that patient had breakfast tray sitting in front of him, but that he had difficulty getting his tray set up and required assistance. Family History: Unchanged from Admission Social History: Unchanged from Admission Past Medical History: Unchanged from Admission Objective Active Medications: Acetaminophen (Tylenol Tab*) 650 mg PO Q4H PRN PRN Reason: FEVER/PAIN Cyanocobalamin (Vitamin B12 Tab*) 1,000 mcg PO DAILY [facility] Dabigatran (Pradaxa Cap(Nf)) 150 mg PO BID [facility] Last Admin: 07/14/16 21:52 Dose: 150 mg Digoxin (Lanoxin Tab*) 0.125 mg PO DAILY [facility] Diltiazem HCl (Cardizem Cd Cap*) 120 mg PO DAILY [facility] Docusate Sodium (Colace Cap*) 100 mg PO BID [facility] Last Admin: 07/14/16 21:52 Dose: 100 mg Sodium Chloride (Ns 0.9% 1000 Ml*) 1,000 mls @ 75 mls/hr IV PER RATE [facility] Last Admin: 07/15/16 04:49 Dose: 75 mls/hr Metoprolol Tartrate (Lopressor Tab*) 12.5 mg PO Q12HR [facility] Last Admin: 07/14/16 21:54 Dose: Not Given Ondansetron HCl (Zofran Inj*) 4 mg IV Q6H PRN PRN Reason: NAUSEA Oxybutynin Chloride (Ditropan Xl Tab*) 15 mg PO DAILY [facility] Senna (Senokot Tab*) 2 tab PO BEDTIME [facility] Last Admin: 07/14/16 21:52 Dose: 2 tab Trimethoprim/Sulfamethoxazole (Bactrim Ds 800/160 Tab*) 1 tab PO BID [facility] Last Admin: 07/14/16 21:52 Dose: 1 tab Vital Signs 07/14/16 07/14/16 07/14/16 14:00 14:11 14:40 Temperature 97.3 F Pulse Rate 46 58 Respiratory 14 18 Rate Blood Pressure 114/58 114/58 114/63 (mmHg) O2 Sat by Pulse 100 Oximetry 07/14/16 07/14/16 07/14/16 14:53 15:31 20:00 Temperature 96.8 F Pulse Rate 58 Respiratory 18 18 16 Rate Blood Pressure 114/63 (mmHg) O2 Sat by Pulse 100 Oximetry 07/14/16 07/14/16 07/15/16 20:03 23:33 00:49 Temperature 97.5 F Pulse Rate 111 103 Respiratory 16 16 Rate Blood Pressure 94/49 105/59 (mmHg) O2 Sat by Pulse 91 92 Oximetry 07/15/16 07/15/16 07/15/16 03:34 07:41 07:49 Temperature 97.3 F 98.1 F Pulse Rate 101 71 Respiratory 18 18 18 Rate Blood Pressure 121/51 117/56 (mmHg) O2 Sat by Pulse 91 100 Oximetry 07/15/16 08:00 Temperature Pulse Rate Respiratory 18 Rate Blood Pressure (mmHg) O2 Sat by Pulse Oximetry Oxygen Devices in Use Now: None Appearance: Thin, elderly male, sitting up in bed, eating breakfast, in NAD Eyes: PERRLA Ears/Nose/Mouth/Throat: Clear Oropharnyx, Mucous Membranes Moist Neck: NL Appearance and Movements; NL JVP Respiratory: Symmetrical Chest Expansion and Respiratory Effort, Clear to Auscultation Cardiovascular: - - S1, S2, irregularly irregular rate/rhythm Abdominal: NL Sounds; No Tenderness; No Distention Extremities: No Edema Skin: No Rash or Ulcers Neurological: Alert and Oriented x 3, - - 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 Lines/Tubes/Other Access: Clean, Dry and Intact Peripheral IV Nutrition: Taking PO's Result Diagrams: 07/15/16 05:15 07/15/16 05:15 Additional Lab and Data: Lab Results 07/14/16 07/14/16 07/14/16 Range/Units 12:05 12:05 12:05 WBC 6.5 (3.5-10.8) 10^3/ul RBC 4.99 (4.0-5.4) 10^6/ul Hgb 15.5 (14.0-18.0) g/dl Hct 47 (42-52) % MCV 93 (80-94) fL MCH 31 (27-31) pg MCHC 33 (31-36) g/dl RDW 15 (10.5-15) % Plt Count 142 L (150-450) 10^3/ul MPV 10 (7.4-10.4) um3 Neut % (Auto) 74.0 (38-83) % Lymph % (Auto) 13.6 L (25-47) % Crockett % (Auto) 7.4 (1-9) % Eos % (Auto) 3.8 (0-6) % Baso % (Auto) 1.2 (0-2) % Absolute Neuts (auto) 4.8 (1.5-7.7) 10^3/ul Absolute Lymphs (auto) 0.9 L (1.0-4.8) 10^3/ul Absolute Monos (auto) 0.5 (0-0.8) 10^3/ul Absolute Eos (auto) 0.2 (0-0.6) 10^3/ul Absolute Basos (auto) 0.1 (0-0.2) 10^3/ul Absolute Nucleated RBC 0 10^3/ul Nucleated RBC % 0.1 INR (Anticoag Therapy) 1.91 H (0.89-1.11) APTT 85.1 H (26.0-36.3) seconds Sodium (133-145) mmol/L Potassium (3.5-5.0) mmol/L Chloride (101-111) mmol/L Carbon Dioxide (22-32) mmol/L Anion Gap (2-11) mmol/L BUN (6-24) mg/dL Creatinine (0.67-1.17) mg/dL Est GFR ( Amer) (>60) Est GFR (Non-Af Amer) (>60) BUN/Creatinine Ratio (8-20) Glucose (70-100) mg/dL Lactic Acid (0.5-2.0) mmol/L Calcium (8.6-10.3) mg/dL Magnesium (1.9-2.7) mg/dL Total Bilirubin (0.2-1.0) mg/dL AST (13-39) U/L ALT (7-52) U/L Alkaline Phosphatase (34-104) U/L Total Creatine Kinase (10-223) U/L CK-MB (CK-2) (0.6-6.3) ng/mL Troponin I (<0.04) ng/mL C-Reactive Protein (< 5.00) mg/L B-Natriuretic Peptide ( - 100) pg/mL Total Protein (6.4-8.9) g/dL Albumin (3.2-5.2) g/dL Globulin (2-4) g/dL Albumin/Globulin Ratio (1-3) Lipase (11.0-82.0) U/L TSH Urine Color Sofia Urine Appearance Cloudy Urine pH 5.0 (5-9) Ur Specific Lanett 1.014 (1.010-1.030) Urine Protein 2+(100 mg/dl) H (Negative) Urine Ketones Negative (Negative) Urine Blood 3+ H (Negative) Urine Nitrate Negative (Negative) Urine Bilirubin Negative (Negative) Urine Urobilinogen Negative (Negative) Ur Leukocyte Esterase Trace H (Negative) Urine WBC (Auto) Trace(0-5/hpf) (Absent) Urine RBC (Auto) 3+(>10/hpf) H (Absent) Ur Squamous Epith Cells Present H (Absent) Urine Bacteria Absent (Absent) Urine Glucose Negative (Negative) Urine Ascorbic Acid * H (Negative) Digoxin 07/14/16 07/14/16 07/14/16 Range/Units 12:05 12:05 12:05 WBC (3.5-10.8) 10^3/ul RBC (4.0-5.4) 10^6/ul Hgb (14.0-18.0) g/dl Hct (42-52) % MCV (80-94) fL MCH (27-31) pg MCHC (31-36) g/dl RDW (10.5-15) % Plt Count (150-450) 10^3/ul MPV (7.4-10.4) um3 Neut % (Auto) (38-83) % Lymph % (Auto) (25-47) % Crockett % (Auto) (1-9) % Eos % (Auto) (0-6) % Baso % (Auto) (0-2) % Absolute Neuts (auto) (1.5-7.7) 10^3/ul Absolute Lymphs (auto) (1.0-4.8) 10^3/ul Absolute Monos (auto) (0-0.8) 10^3/ul Absolute Eos (auto) (0-0.6) 10^3/ul Absolute Basos (auto) (0-0.2) 10^3/ul Absolute Nucleated RBC 10^3/ul Nucleated RBC % INR (Anticoag Therapy) (0.89-1.11) APTT (26.0-36.3) seconds Sodium 135 (133-145) mmol/L Potassium 4.2 (3.5-5.0) mmol/L Chloride 102 (101-111) mmol/L Carbon Dioxide 29 (22-32) mmol/L Anion Gap 4 (2-11) mmol/L BUN 17 (6-24) mg/dL Creatinine 1.14 (0.67-1.17) mg/dL Est GFR ( Amer) 79.3 (>60) Est GFR (Non-Af Amer) 61.7 (>60) BUN/Creatinine Ratio 14.9 (8-20) Glucose 82 (70-100) mg/dL Lactic Acid 1.4 (0.5-2.0) mmol/L Calcium 10.9 H (8.6-10.3) mg/dL Magnesium 1.7 L (1.9-2.7) mg/dL Total Bilirubin 0.60 (0.2-1.0) mg/dL AST 13 (13-39) U/L ALT 7 (7-52) U/L Alkaline Phosphatase 77 (34-104) U/L Total Creatine Kinase 17 (10-223) U/L CK-MB (CK-2) 2.6 (0.6-6.3) ng/mL Troponin I 0.02 (<0.04) ng/mL C-Reactive Protein < 1.00 (< 5.00) mg/L B-Natriuretic Peptide 224 H ( - 100) pg/mL Total Protein 6.6 (6.4-8.9) g/dL Albumin 3.6 (3.2-5.2) g/dL Globulin 3.0 (2-4) g/dL Albumin/Globulin Ratio 1.2 (1-3) Lipase < 10 L (11.0-82.0) U/L TSH Pending Urine Color Urine Appearance Urine pH (5-9) Ur Specific Lanett (1.010-1.030) Urine Protein (Negative) Urine Ketones (Negative) Urine Blood (Negative) Urine Nitrate (Negative) Urine Bilirubin (Negative) Urine Urobilinogen (Negative) Ur Leukocyte Esterase (Negative) Urine WBC (Auto) (Absent) Urine RBC (Auto) (Absent) Ur Squamous Epith Cells (Absent) Urine Bacteria (Absent) Urine Glucose (Negative) Urine Ascorbic Acid (Negative) Digoxin Pending Assess/Plan/Problems-Billing Assessment: Mr. Gallego is an 81 yo male with a PMH of HTN, atrial fib, CVA, BPH, urinary retention, GERD, and GIB who presented to the ED on 07/15/16 with concern for weakness. - Patient Problems (1) Weakness Code(s): R53.1 - WEAKNESS Comment: Progressive weakness at home, unclear etiology. Suspect deconditioning with recent UTI. Recently treated for MRSA UTI, now treated with Bactrim. No s/s of new acute infection, flu swab negative, TSH WNL, digoxin level WNL. Patient noted to be bradycardic on admission, metoprolol decreased. PT/OT consults (2) Urinary retention Code(s): R33.9 - RETENTION OF URINE, UNSPECIFIED Comment: With chronic indwelling catheter, recently changed in ED. Continue oxybutynin. (3) Hematuria Code(s): R31.9 - HEMATURIA, UNSPECIFIED Comment: Appears to be clearing up after malloy catheter change and IVF. Continue outpatient urology follow-up. (4) BPH (benign prostatic hyperplasia) Code(s): N40.0 - BENIGN PROSTATIC HYPERPLASIA WITHOUT LOWER URINRY TRACT SYMP Comment: With urinary retention. Continue outpatient follow-up with urology. (5) Atrial fibrillation Code(s): I48.91 - UNSPECIFIED ATRIAL FIBRILLATION Comment: Rate controlled between 60s-100s. Continue reduced dose metoprolol, digoxin, diltiazem. Continue Pradaxa. (6) HTN (hypertension) Code(s): I10 - ESSENTIAL (PRIMARY) HYPERTENSION Comment: Normotensive, continue metoprolol at reduced dose and diltiazem. (7) History of CVA (cerebrovascular accident) Code(s): Z86.73 - PRSNL HX OF TIA (TIA), AND CEREB INFRC W/O RESID DEFICITS Comment: Continue Pradaxa. (8) DVT prophylaxis Code(s): ZHX1553 - Comment: Pradaxa Status and Disposition: Inpatient admission. Anticipate LOS >2 days. May require CATIE.
[2016-07-15] MEDS: Digoxin TAB* 0.125 MG PO SCH (09:39)
[2016-07-15] MEDS: Cyanocobalamin TAB* 500 MCG PO SCH (09:39)
[2016-07-15] MEDS: Metoprolol Tartrate TAB* 25 MG PO SCH ×2 (09:39→20:16)
[2016-07-15] MEDS: Docusate CAP* 100 MG PO SCH ×2 (09:41→20:12)
[2016-07-15] MEDS: Diltiazem CD CAP* 120 MG PO SCH (09:41)
[2016-07-15] MEDS: Sulfamethox/Trimethoprim DS 800/160* TAB PO SCH ×2 (09:41→20:13)
[2016-07-15 10:15] LABS: TSH (Thyroid Stimulating Horm) 1.3 mcIU/mL (0.34-5.60)
[2016-07-15] MEDS: CMC:Dabigatran CAP(NF) 150 MG CAP PO SCH ×2 (10:52→20:12)
[2016-07-15] MEDS: Oxybutynin XL TAB* 5 MG PO SCH (10:52)
[2016-07-15] MEDS: Senna TAB PO SCH (20:12)
[2016-07-16] MEDS: Polyethylene Glycol 3350* 17 GM PACKET PO SCH (09:06)
[2016-07-16] MEDS: Sulfamethox/Trimethoprim DS 800/160* TAB PO SCH ×2 (09:07→21:45)
[2016-07-16] MEDS: Oxybutynin XL TAB* 5 MG PO SCH (09:07)
[2016-07-16] MEDS: Diltiazem CD CAP* 120 MG PO SCH (09:07)
[2016-07-16] MEDS: Metoprolol Tartrate TAB* 25 MG PO SCH ×2 (09:07→21:45)
[2016-07-16] MEDS: Docusate CAP* 100 MG PO SCH ×2 (09:07→21:45)
[2016-07-16] MEDS: Digoxin TAB* 0.125 MG PO SCH (09:09)
[2016-07-16] MEDS: Cyanocobalamin TAB* 500 MCG PO SCH (09:10)
[2016-07-16] MEDS: CMC:Dabigatran CAP(NF) 150 MG CAP PO SCH ×2 (09:10→21:45)
--- NOTE | 2016-07-16 10:48 | PN ---
Subjective Date of Service: 07/16/16 Interval History: Patient seen and examined at bedside. He is OOB to chair and does not offer any complaints, denying CP, fever/chills, SOB, abd pain, n/v. He states it took 2 people to get him OOB with his walker. 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 No other acute concerns, other than weakness with ambulation that requires a max 2 assist. Family History: Unchanged from Admission Social History: Unchanged from Admission Past Medical History: Unchanged from Admission Objective Active Medications: Acetaminophen (Tylenol Tab*) 650 mg PO Q4H PRN PRN Reason: FEVER/PAIN Cyanocobalamin (Vitamin B12 Tab*) 1,000 mcg PO DAILY [facility] Last Admin: 07/16/16 09:10 Dose: 1,000 mcg Dabigatran (Pradaxa Cap(Nf)) 150 mg PO BID [facility] Last Admin: 07/16/16 09:10 Dose: 150 mg Digoxin (Lanoxin Tab*) 0.125 mg PO DAILY [facility] Last Admin: 07/16/16 09:09 Dose: 0.125 mg Diltiazem HCl (Cardizem Cd Cap*) 120 mg PO DAILY [facility] Last Admin: 07/16/16 09:07 Dose: 120 mg Docusate Sodium (Colace Cap*) 100 mg PO BID [facility] Last Admin: 07/16/16 09:07 Dose: 100 mg Metoprolol Tartrate (Lopressor Tab*) 12.5 mg PO Q12HR [facility] Last Admin: 07/16/16 09:07 Dose: 12.5 mg Ondansetron HCl (Zofran Inj*) 4 mg IV Q6H PRN PRN Reason: NAUSEA Oxybutynin Chloride (Ditropan Xl Tab*) 15 mg PO DAILY [facility] Last Admin: 07/16/16 09:07 Dose: 15 mg Polyethylene Glycol/Electrolytes (Miralax*) 17 gm PO DAILY [facility] Last Admin: 07/16/16 09:06 Dose: 17 gm Senna (Senokot Tab*) 2 tab PO BEDTIME [facility] Last Admin: 07/15/16 20:12 Dose: 2 tab Trimethoprim/Sulfamethoxazole (Bactrim Ds 800/160 Tab*) 1 tab PO BID [facility] Last Admin: 07/16/16 09:07 Dose: 1 tab Vital Signs 07/15/16 07/15/16 07/15/16 15:48 19:38 19:51 Temperature 97.4 F 96.8 F Pulse Rate 86 77 Respiratory 18 16 Rate Blood Pressure 109/54 113/58 (mmHg) O2 Sat by Pulse 98 93 Oximetry 07/15/16 07/16/16 07/16/16 23:51 08:00 09:09 Temperature 98.1 F 98.2 F Pulse Rate 74 45 68 Respiratory 16 18 Rate Blood Pressure 98/42 104/52 (mmHg) O2 Sat by Pulse 95 98 Oximetry Oxygen Devices in Use Now: None Appearance: Thin, elderly male patient, OOB to chair, in NAD Eyes: PERRLA Ears/Nose/Mouth/Throat: Clear Oropharnyx, Mucous Membranes Moist Neck: NL Appearance and Movements; NL JVP Respiratory: Symmetrical Chest Expansion and Respiratory Effort, Clear to Auscultation Cardiovascular: - - S1, S2 irregular rate/rhythm Abdominal: NL Sounds; No Tenderness; No Distention Extremities: No Edema, No Clubbing, Cyanosis Skin: No Rash or Ulcers, - - old abrasions noted to BLE Neurological: Alert and Oriented x 3, - - left glass embosser weaker than right Lines/Tubes/Other Access: Clean, Dry and Intact 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, Clean, Dry and Intact Peripheral IV Nutrition: Taking PO's Result Diagrams: 07/15/16 05:15 07/15/16 05:15 Additional Lab and Data: Lab Results 07/14/16 07/14/16 07/14/16 Range/Units 12:05 12:05 12:05 WBC 6.5 (3.5-10.8) 10^3/ul RBC 4.99 (4.0-5.4) 10^6/ul Hgb 15.5 (14.0-18.0) g/dl Hct 47 (42-52) % MCV 93 (80-94) fL MCH 31 (27-31) pg MCHC 33 (31-36) g/dl RDW 15 (10.5-15) % Plt Count 142 L (150-450) 10^3/ul MPV 10 (7.4-10.4) um3 Neut % (Auto) 74.0 (38-83) % Lymph % (Auto) 13.6 L (25-47) % Hart % (Auto) 7.4 (1-9) % Eos % (Auto) 3.8 (0-6) % Baso % (Auto) 1.2 (0-2) % Absolute Neuts (auto) 4.8 (1.5-7.7) 10^3/ul Absolute Lymphs (auto) 0.9 L (1.0-4.8) 10^3/ul Absolute Monos (auto) 0.5 (0-0.8) 10^3/ul Absolute Eos (auto) 0.2 (0-0.6) 10^3/ul Absolute Basos (auto) 0.1 (0-0.2) 10^3/ul Absolute Nucleated RBC 0 10^3/ul Nucleated RBC % 0.1 INR (Anticoag Therapy) 1.91 H (0.89-1.11) APTT 85.1 H (26.0-36.3) seconds Sodium (133-145) mmol/L Potassium (3.5-5.0) mmol/L Chloride (101-111) mmol/L Carbon Dioxide (22-32) mmol/L Anion Gap (2-11) mmol/L BUN (6-24) mg/dL Creatinine (0.67-1.17) mg/dL Est GFR ( Amer) (>60) Est GFR (Non-Af Amer) (>60) BUN/Creatinine Ratio (8-20) Glucose (70-100) mg/dL Lactic Acid (0.5-2.0) mmol/L Calcium (8.6-10.3) mg/dL Magnesium (1.9-2.7) mg/dL Total Bilirubin (0.2-1.0) mg/dL AST (13-39) U/L ALT (7-52) U/L Alkaline Phosphatase (34-104) U/L Total Creatine Kinase (10-223) U/L CK-MB (CK-2) (0.6-6.3) ng/mL Troponin I (<0.04) ng/mL C-Reactive Protein (< 5.00) mg/L B-Natriuretic Peptide ( - 100) pg/mL Total Protein (6.4-8.9) g/dL Albumin (3.2-5.2) g/dL Globulin (2-4) g/dL Albumin/Globulin Ratio (1-3) Lipase (11.0-82.0) U/L TSH Urine Color Gisselle Urine Appearance Cloudy Urine pH 5.0 (5-9) Ur Specific [place] 1.014 (1.010-1.030) Urine Protein 2+(100 mg/dl) H (Negative) Urine Ketones Negative (Negative) Urine Blood 3+ H (Negative) Urine Nitrate Negative (Negative) Urine Bilirubin Negative (Negative) Urine Urobilinogen Negative (Negative) Ur Leukocyte Esterase Trace H (Negative) Urine WBC (Auto) Trace(0-5/hpf) (Absent) Urine RBC (Auto) 3+(>10/hpf) H (Absent) Ur Squamous Epith Cells Present H (Absent) Urine Bacteria Absent (Absent) Urine Glucose Negative (Negative) Urine Ascorbic Acid * H (Negative) Digoxin 07/14/16 07/14/16 07/14/16 Range/Units 12:05 12:05 12:05 WBC (3.5-10.8) 10^3/ul RBC (4.0-5.4) 10^6/ul Hgb (14.0-18.0) g/dl Hct (42-52) % MCV (80-94) fL MCH (27-31) pg MCHC (31-36) g/dl RDW (10.5-15) % Plt Count (150-450) 10^3/ul MPV (7.4-10.4) um3 Neut % (Auto) (38-83) % Lymph % (Auto) (25-47) % Hart % (Auto) (1-9) % Eos % (Auto) (0-6) % Baso % (Auto) (0-2) % Absolute Neuts (auto) (1.5-7.7) 10^3/ul Absolute Lymphs (auto) (1.0-4.8) 10^3/ul Absolute Monos (auto) (0-0.8) 10^3/ul Absolute Eos (auto) (0-0.6) 10^3/ul Absolute Basos (auto) (0-0.2) 10^3/ul Absolute Nucleated RBC 10^3/ul Nucleated RBC % INR (Anticoag Therapy) (0.89-1.11) APTT (26.0-36.3) seconds Sodium 135 (133-145) mmol/L Potassium 4.2 (3.5-5.0) mmol/L Chloride 102 (101-111) mmol/L Carbon Dioxide 29 (22-32) mmol/L Anion Gap 4 (2-11) mmol/L BUN 17 (6-24) mg/dL Creatinine 1.14 (0.67-1.17) mg/dL Est GFR ( Amer) 79.3 (>60) Est GFR (Non-Af Amer) 61.7 (>60) BUN/Creatinine Ratio 14.9 (8-20) Glucose 82 (70-100) mg/dL Lactic Acid 1.4 (0.5-2.0) mmol/L Calcium 10.9 H (8.6-10.3) mg/dL Magnesium 1.7 L (1.9-2.7) mg/dL Total Bilirubin 0.60 (0.2-1.0) mg/dL AST 13 (13-39) U/L ALT 7 (7-52) U/L Alkaline Phosphatase 77 (34-104) U/L Total Creatine Kinase 17 (10-223) U/L CK-MB (CK-2) 2.6 (0.6-6.3) ng/mL Troponin I 0.02 (<0.04) ng/mL C-Reactive Protein < 1.00 (< 5.00) mg/L B-Natriuretic Peptide 224 H ( - 100) pg/mL Total Protein 6.6 (6.4-8.9) g/dL Albumin 3.6 (3.2-5.2) g/dL Globulin 3.0 (2-4) g/dL Albumin/Globulin Ratio 1.2 (1-3) Lipase < 10 L (11.0-82.0) U/L TSH Pending Urine Color Urine Appearance Urine pH (5-9) Ur Specific [place] (1.010-1.030) Urine Protein (Negative) Urine Ketones (Negative) Urine Blood (Negative) Urine Nitrate (Negative) Urine Bilirubin (Negative) Urine Urobilinogen (Negative) Ur Leukocyte Esterase (Negative) Urine WBC (Auto) (Absent) Urine RBC (Auto) (Absent) Ur Squamous Epith Cells (Absent) Urine Bacteria (Absent) Urine Glucose (Negative) Urine Ascorbic Acid (Negative) Digoxin Pending Assess/Plan/Problems-Billing Assessment: Mr. Gallego is an 81 yo male with a PMH of HTN, atrial fib, CVA, BPH, urinary retention, GERD, and GIB who presented to the ED on 07/15/16 with concern for weakness. - Patient Problems (1) Weakness Code(s): R53.1 - WEAKNESS Comment: Progressive weakness at home. Suspect deconditioning with recent UTI. Recently treated for MRSA UTI, now treated with Bactrim. No s/s of new acute infection, flu swab negative, TSH WNL, digoxin level WNL. Patient noted to be bradycardic on admission, metoprolol decreased. PT/OT consults - will likely need CATIE or SNF placement (2) Urinary retention Code(s): R33.9 - RETENTION OF URINE, UNSPECIFIED Comment: With chronic indwelling catheter, recently changed in ED. Continue oxybutynin. (3) Hematuria Code(s): R31.9 - HEMATURIA, UNSPECIFIED Comment: Appears to be clearing up after malloy catheter change and IVF. Likely secondary to UTI. Continue outpatient urology follow-up. (4) BPH (benign prostatic hyperplasia) Code(s): N40.0 - BENIGN PROSTATIC HYPERPLASIA WITHOUT LOWER URINRY TRACT SYMP Comment: With urinary retention. Continue outpatient follow-up with urology. (5) Atrial fibrillation Code(s): I48.91 - UNSPECIFIED ATRIAL FIBRILLATION Comment: Rate controlled between 60s-100s. Continue reduced dose metoprolol, digoxin, diltiazem. Continue Pradaxa. (6) HTN (hypertension) Code(s): I10 - ESSENTIAL (PRIMARY) HYPERTENSION Comment: Normotensive, continue metoprolol at reduced dose and diltiazem. (7) History of CVA (cerebrovascular accident) Code(s): Z86.73 - PRSNL HX OF TIA (TIA), AND CEREB INFRC W/O RESID DEFICITS Comment: Continue Pradaxa. (8) DVT prophylaxis Code(s): TTW9975 - Comment: Pradaxa Status and Disposition: Inpatient admission. Anticipate LOS >2 days. Likely will need CATIE or SNF placement.
[2016-07-16] MEDS: Senna TAB PO SCH (21:45)
[2016-07-17] MEDS: Digoxin TAB* 0.125 MG PO SCH (09:57)
[2016-07-17] MEDS: Oxybutynin XL TAB* 5 MG PO SCH (10:00)
[2016-07-17] MEDS: Sulfamethox/Trimethoprim DS 800/160* TAB PO SCH (10:01)
[2016-07-17] MEDS: Cyanocobalamin TAB* 500 MCG PO SCH (10:01)
[2016-07-17] MEDS: Polyethylene Glycol 3350* 17 GM PACKET PO SCH (10:01)
[2016-07-17] MEDS: CMC:Dabigatran CAP(NF) 150 MG CAP PO SCH ×2 (10:01→20:50)
[2016-07-17] MEDS: Docusate CAP* 100 MG PO SCH ×2 (10:01→20:50)
[2016-07-17] MEDS: Diltiazem CD CAP* 120 MG PO SCH (10:03)
[2016-07-17] MEDS: Metoprolol Tartrate TAB* 25 MG PO SCH ×2 (10:57→20:48)
--- NOTE | 2016-07-17 11:21 | PN ---
Subjective Date of Service: 07/17/16 Interval History: Patient seen and examined at bedside. He offers no complaints, and denies fever/ chills, CP, SOB, abd pain, n/v. He simply states, "I feel weak." He is unable to recall the name of his PCP or urologist. No acute concerns from nursing. Family History: Unchanged from Admission Social History: Unchanged from Admission Past Medical History: Unchanged from Admission Objective Active Medications: Acetaminophen (Tylenol Tab*) 650 mg PO Q4H PRN PRN Reason: FEVER/PAIN Cyanocobalamin (Vitamin B12 Tab*) 1,000 mcg PO DAILY [facility] Last Admin: 07/17/16 10:01 Dose: 1,000 mcg Dabigatran (Pradaxa Cap(Nf)) 150 mg PO BID [facility] Last Admin: 07/17/16 10:01 Dose: 150 mg Digoxin (Lanoxin Tab*) 0.125 mg PO DAILY [facility] Last Admin: 07/17/16 09:57 Dose: 0.125 mg Diltiazem HCl (Cardizem Cd Cap*) 120 mg PO DAILY [facility] Last Admin: 07/17/16 10:03 Dose: 120 mg Docusate Sodium (Colace Cap*) 100 mg PO BID [facility] Last Admin: 07/17/16 10:01 Dose: 100 mg Metoprolol Tartrate (Lopressor Tab*) 12.5 mg PO Q12HR [facility] Last Admin: 07/17/16 10:57 Dose: Not Given Ondansetron HCl (Zofran Inj*) 4 mg IV Q6H PRN PRN Reason: NAUSEA Oxybutynin Chloride (Ditropan Xl Tab*) 15 mg PO DAILY [facility] Last Admin: 07/17/16 10:00 Dose: 15 mg Polyethylene Glycol/Electrolytes (Miralax*) 17 gm PO DAILY [facility] Last Admin: 07/17/16 10:01 Dose: 17 gm Senna (Senokot Tab*) 2 tab PO BEDTIME [facility] Last Admin: 07/16/16 21:45 Dose: 2 tab Trimethoprim/Sulfamethoxazole (Bactrim Ds 800/160 Tab*) 1 tab PO BID [facility] Last Admin: 07/17/16 10:01 Dose: 1 tab Vital Signs 07/16/16 07/16/16 07/16/16 15:29 15:44 20:00 Temperature 97.7 F Pulse Rate 71 70 Respiratory 16 Rate Blood Pressure 95/56 (mmHg) O2 Sat by Pulse 98 Oximetry 07/16/16 07/16/16 07/17/16 21:40 23:57 07:16 Temperature 97.5 F 98.0 F Pulse Rate 59 95 69 Respiratory 16 18 Rate Blood Pressure 96/61 104/61 104/54 (mmHg) O2 Sat by Pulse 95 99 Oximetry 07/17/16 09:57 Temperature Pulse Rate 68 Respiratory Rate Blood Pressure (mmHg) O2 Sat by Pulse Oximetry Oxygen Devices in Use Now: None Appearance: Thin, elderly male, sitting up in bed, in NAD Eyes: PERRLA Ears/Nose/Mouth/Throat: Clear Oropharnyx, Mucous Membranes Moist Neck: NL Appearance and Movements; NL JVP Respiratory: Symmetrical Chest Expansion and Respiratory Effort, Clear to Auscultation - diminished Cardiovascular: NL Sounds; No Murmurs; No JVD, - - S1, S2, irregular rate/rhythm Abdominal: NL Sounds; No Tenderness; No Distention Extremities: No Edema, No Clubbing, Cyanosis Skin: No Rash or Ulcers Neurological: Alert and Oriented x 3 - forgetful, poor historian Lines/Tubes/Other Access: Clean, Dry and Intact Malloy - chronic, Clean, Dry and Intact Peripheral IV Result Diagrams: 07/15/16 05:15 07/15/16 05:15 Additional Lab and Data: Lab Results 07/14/16 07/14/16 07/14/16 Range/Units 12:05 12:05 12:05 WBC 6.5 (3.5-10.8) 10^3/ul RBC 4.99 (4.0-5.4) 10^6/ul Hgb 15.5 (14.0-18.0) g/dl Hct 47 (42-52) % MCV 93 (80-94) fL MCH 31 (27-31) pg MCHC 33 (31-36) g/dl RDW 15 (10.5-15) % Plt Count 142 L (150-450) 10^3/ul MPV 10 (7.4-10.4) um3 Neut % (Auto) 74.0 (38-83) % Lymph % (Auto) 13.6 L (25-47) % Rogers % (Auto) 7.4 (1-9) % Eos % (Auto) 3.8 (0-6) % Baso % (Auto) 1.2 (0-2) % Absolute Neuts (auto) 4.8 (1.5-7.7) 10^3/ul Absolute Lymphs (auto) 0.9 L (1.0-4.8) 10^3/ul Absolute Monos (auto) 0.5 (0-0.8) 10^3/ul Absolute Eos (auto) 0.2 (0-0.6) 10^3/ul Absolute Basos (auto) 0.1 (0-0.2) 10^3/ul Absolute Nucleated RBC 0 10^3/ul Nucleated RBC % 0.1 INR (Anticoag Therapy) 1.91 H (0.89-1.11) APTT 85.1 H (26.0-36.3) seconds Sodium (133-145) mmol/L Potassium (3.5-5.0) mmol/L Chloride (101-111) mmol/L Carbon Dioxide (22-32) mmol/L Anion Gap (2-11) mmol/L BUN (6-24) mg/dL Creatinine (0.67-1.17) mg/dL Est GFR ( Amer) (>60) Est GFR (Non-Af Amer) (>60) BUN/Creatinine Ratio (8-20) Glucose (70-100) mg/dL Lactic Acid (0.5-2.0) mmol/L Calcium (8.6-10.3) mg/dL Magnesium (1.9-2.7) mg/dL Total Bilirubin (0.2-1.0) mg/dL AST (13-39) U/L ALT (7-52) U/L Alkaline Phosphatase (34-104) U/L Total Creatine Kinase (10-223) U/L CK-MB (CK-2) (0.6-6.3) ng/mL Troponin I (<0.04) ng/mL C-Reactive Protein (< 5.00) mg/L B-Natriuretic Peptide ( - 100) pg/mL Total Protein (6.4-8.9) g/dL Albumin (3.2-5.2) g/dL Globulin (2-4) g/dL Albumin/Globulin Ratio (1-3) Lipase (11.0-82.0) U/L TSH Urine Color Sofia Urine Appearance Cloudy Urine pH 5.0 (5-9) Ur Specific [place] 1.014 (1.010-1.030) Urine Protein 2+(100 mg/dl) H (Negative) Urine Ketones Negative (Negative) Urine Blood 3+ H (Negative) Urine Nitrate Negative (Negative) Urine Bilirubin Negative (Negative) Urine Urobilinogen Negative (Negative) Ur Leukocyte Esterase Trace H (Negative) Urine WBC (Auto) Trace(0-5/hpf) (Absent) Urine RBC (Auto) 3+(>10/hpf) H (Absent) Ur Squamous Epith Cells Present H (Absent) Urine Bacteria Absent (Absent) Urine Glucose Negative (Negative) Urine Ascorbic Acid * H (Negative) Digoxin 07/14/16 07/14/16 07/14/16 Range/Units 12:05 12:05 12:05 WBC (3.5-10.8) 10^3/ul RBC (4.0-5.4) 10^6/ul Hgb (14.0-18.0) g/dl Hct (42-52) % MCV (80-94) fL MCH (27-31) pg MCHC (31-36) g/dl RDW (10.5-15) % Plt Count (150-450) 10^3/ul MPV (7.4-10.4) um3 Neut % (Auto) (38-83) % Lymph % (Auto) (25-47) % Rogers % (Auto) (1-9) % Eos % (Auto) (0-6) % Baso % (Auto) (0-2) % Absolute Neuts (auto) (1.5-7.7) 10^3/ul Absolute Lymphs (auto) (1.0-4.8) 10^3/ul Absolute Monos (auto) (0-0.8) 10^3/ul Absolute Eos (auto) (0-0.6) 10^3/ul Absolute Basos (auto) (0-0.2) 10^3/ul Absolute Nucleated RBC 10^3/ul Nucleated RBC % INR (Anticoag Therapy) (0.89-1.11) APTT (26.0-36.3) seconds Sodium 135 (133-145) mmol/L Potassium 4.2 (3.5-5.0) mmol/L Chloride 102 (101-111) mmol/L Carbon Dioxide 29 (22-32) mmol/L Anion Gap 4 (2-11) mmol/L BUN 17 (6-24) mg/dL Creatinine 1.14 (0.67-1.17) mg/dL Est GFR ( Amer) 79.3 (>60) Est GFR (Non-Af Amer) 61.7 (>60) BUN/Creatinine Ratio 14.9 (8-20) Glucose 82 (70-100) mg/dL Lactic Acid 1.4 (0.5-2.0) mmol/L Calcium 10.9 H (8.6-10.3) mg/dL Magnesium 1.7 L (1.9-2.7) mg/dL Total Bilirubin 0.60 (0.2-1.0) mg/dL AST 13 (13-39) U/L ALT 7 (7-52) U/L Alkaline Phosphatase 77 (34-104) U/L Total Creatine Kinase 17 (10-223) U/L CK-MB (CK-2) 2.6 (0.6-6.3) ng/mL Troponin I 0.02 (<0.04) ng/mL C-Reactive Protein < 1.00 (< 5.00) mg/L B-Natriuretic Peptide 224 H ( - 100) pg/mL Total Protein 6.6 (6.4-8.9) g/dL Albumin 3.6 (3.2-5.2) g/dL Globulin 3.0 (2-4) g/dL Albumin/Globulin Ratio 1.2 (1-3) Lipase < 10 L (11.0-82.0) U/L TSH Pending Urine Color Urine Appearance Urine pH (5-9) Ur Specific [place] (1.010-1.030) Urine Protein (Negative) Urine Ketones (Negative) Urine Blood (Negative) Urine Nitrate (Negative) Urine Bilirubin (Negative) Urine Urobilinogen (Negative) Ur Leukocyte Esterase (Negative) Urine WBC (Auto) (Absent) Urine RBC (Auto) (Absent) Ur Squamous Epith Cells (Absent) Urine Bacteria (Absent) Urine Glucose (Negative) Urine Ascorbic Acid (Negative) Digoxin Pending Assess/Plan/Problems-Billing Assessment: Mr. Gallego is an 81 yo male with a PMH of HTN, atrial fib, CVA, BPH, urinary retention, GERD, and GIB who presented to the ED on 07/15/16 with concern for weakness. - Patient Problems (1) Weakness Code(s): R53.1 - WEAKNESS Comment: Progressive weakness at home. Suspect deconditioning with recent UTI. Recently treated for MRSA UTI, now treated with Bactrim. No s/s of new acute infection, flu swab negative, TSH WNL, digoxin level WNL. Patient noted to be bradycardic on admission, metoprolol decreased. HR improved. PT/OT consults - will likely need CATIE or SNF placement (2) UTI (urinary tract infection) Comment: Secondary to MRSA. Treatment initiated by PCP at [facility] on 07/04. Second course of Bactrim ordered 07/13 for additional 10 days due to lack of improvement. Medical records requested from [facility]. (3) Urinary retention Code(s): R33.9 - RETENTION OF URINE, UNSPECIFIED Comment: With chronic indwelling catheter, recently changed in ED. Continue oxybutynin. (4) Hematuria Code(s): R31.9 - HEMATURIA, UNSPECIFIED Comment: Appears to be clearing up after malloy catheter change and IVF. Likely secondary to UTI. Continue outpatient urology follow-up. (5) BPH (benign prostatic hyperplasia) Code(s): N40.0 - BENIGN PROSTATIC HYPERPLASIA WITHOUT LOWER URINRY TRACT SYMP Comment: With urinary retention. Continue outpatient follow-up with urology. (6) Atrial fibrillation Code(s): I48.91 - UNSPECIFIED ATRIAL FIBRILLATION Comment: Rate controlled between 60s-100s. Continue reduced dose metoprolol, digoxin, diltiazem. Continue Pradaxa. (7) HTN (hypertension) Code(s): I10 - ESSENTIAL (PRIMARY) HYPERTENSION Comment: Normotensive, continue metoprolol at reduced dose and diltiazem with hold parameters. (8) History of CVA (cerebrovascular accident) Code(s): Z86.73 - PRSNL HX OF TIA (TIA), AND CEREB INFRC W/O RESID DEFICITS Comment: Continue Pradaxa. (9) DVT prophylaxis Code(s): [id number] - Comment: Pradaxa Status and Disposition: Inpatient admission. Anticipate LOS >2 days. Likely will need CATIE or SNF placement.
[2016-07-17] MEDS: Senna TAB PO SCH (20:50)
[2016-07-18] MEDS: Polyethylene Glycol 3350* 17 GM PACKET PO SCH (09:16)
[2016-07-18] MEDS: CMC:Dabigatran CAP(NF) 150 MG CAP PO SCH ×2 (09:16→21:35)
[2016-07-18] MEDS: Cyanocobalamin TAB* 500 MCG PO SCH (09:16)
[2016-07-18] MEDS: Metoprolol Tartrate TAB* 25 MG PO SCH ×2 (09:16→21:34)
[2016-07-18] MEDS: Diltiazem CD CAP* 120 MG PO SCH (09:17)
[2016-07-18] MEDS: Digoxin TAB* 0.125 MG PO SCH (09:17)
[2016-07-18] MEDS: Docusate CAP* 100 MG PO SCH ×2 (09:17→21:35)
[2016-07-18] MEDS: Oxybutynin XL TAB* 5 MG PO SCH (09:17)
--- NOTE | 2016-07-18 10:16 | PN ---
Subjective Date of Service: 07/18/16 Interval History: Patient seen and examined at bedside. He is sitting up in bed. He continues to deny fever/chills, CP, SOB, abd pain, n/v, dysuria. He only endorses the complaint of weakness. Multiple attempts made yesterday afternoon and this morning to contact patient's sister for any further collateral information, but I am unable to leave a message for her to ask for a return phone call. Nursing with no acute concerns. Family History: Unchanged from Admission Social History: Unchanged from Admission Past Medical History: Unchanged from Admission Objective Active Medications: Acetaminophen (Tylenol Tab*) 650 mg PO Q4H PRN PRN Reason: FEVER/PAIN Cyanocobalamin (Vitamin B12 Tab*) 1,000 mcg PO DAILY [facility] Last Admin: 07/18/16 09:16 Dose: 1,000 mcg Dabigatran (Pradaxa Cap(Nf)) 150 mg PO BID [facility] Last Admin: 07/18/16 09:16 Dose: 150 mg Digoxin (Lanoxin Tab*) 0.125 mg PO DAILY [facility] Last Admin: 07/18/16 09:17 Dose: 0.125 mg Diltiazem HCl (Cardizem Cd Cap*) 120 mg PO DAILY [facility] Last Admin: 07/18/16 09:17 Dose: 120 mg Docusate Sodium (Colace Cap*) 100 mg PO BID [facility] Last Admin: 07/18/16 09:17 Dose: 100 mg Metoprolol Tartrate (Lopressor Tab*) 12.5 mg PO Q12HR [facility] Last Admin: 07/18/16 09:16 Dose: 12.5 mg Ondansetron HCl (Zofran Inj*) 4 mg IV Q6H PRN PRN Reason: NAUSEA Oxybutynin Chloride (Ditropan Xl Tab*) 15 mg PO DAILY [facility] Last Admin: 07/18/16 09:17 Dose: 15 mg Polyethylene Glycol/Electrolytes (Miralax*) 17 gm PO DAILY [facility] Last Admin: 07/18/16 09:16 Dose: 17 gm Senna (Senokot Tab*) 2 tab PO BEDTIME [facility] Last Admin: 07/17/16 20:50 Dose: 2 tab Vital Signs 07/17/16 07/17/16 07/17/16 16:17 20:00 23:31 Temperature 97.3 F 97.5 F Pulse Rate 66 23 Respiratory 16 16 Rate Blood Pressure 107/55 118/51 (mmHg) O2 Sat by Pulse 98 97 Oximetry 07/18/16 07/18/16 07:38 08:00 Temperature 97.2 F Pulse Rate 64 Respiratory 16 16 Rate Blood Pressure 100/46 (mmHg) O2 Sat by Pulse 96 Oximetry Oxygen Devices in Use Now: None Appearance: Thin, elderly male, sitting up in bed, in NAD Eyes: PERRLA Ears/Nose/Mouth/Throat: Clear Oropharnyx, Mucous Membranes Moist Neck: NL Appearance and Movements; NL JVP Respiratory: Symmetrical Chest Expansion and Respiratory Effort, Clear to Auscultation - diminished Cardiovascular: NL Sounds; No Murmurs; No JVD, - - S1, S2, irregular Abdominal: NL Sounds; No Tenderness; No Distention Extremities: No Edema, No Clubbing, Cyanosis Skin: - - abrasions and old ecchymosis to BLE Neurological: Alert and Oriented x 3 - forgetful, poor historian Lines/Tubes/Other Access: Clean, Dry and Intact [place] - gisselle, Clean, Dry and Intact Peripheral IV Nutrition: Taking PO's Result Diagrams: 07/15/16 05:15 07/15/16 05:15 Additional Lab and Data: Lab Results 07/14/16 07/14/16 07/14/16 Range/Units 12:05 12:05 12:05 WBC 6.5 (3.5-10.8) 10^3/ul RBC 4.99 (4.0-5.4) 10^6/ul Hgb 15.5 (14.0-18.0) g/dl Hct 47 (42-52) % MCV 93 (80-94) fL MCH 31 (27-31) pg MCHC 33 (31-36) g/dl RDW 15 (10.5-15) % Plt Count 142 L (150-450) 10^3/ul MPV 10 (7.4-10.4) um3 Neut % (Auto) 74.0 (38-83) % Lymph % (Auto) 13.6 L (25-47) % Josephine % (Auto) 7.4 (1-9) % Eos % (Auto) 3.8 (0-6) % Baso % (Auto) 1.2 (0-2) % Absolute Neuts (auto) 4.8 (1.5-7.7) 10^3/ul Absolute Lymphs (auto) 0.9 L (1.0-4.8) 10^3/ul Absolute Monos (auto) 0.5 (0-0.8) 10^3/ul Absolute Eos (auto) 0.2 (0-0.6) 10^3/ul Absolute Basos (auto) 0.1 (0-0.2) 10^3/ul Absolute Nucleated RBC 0 10^3/ul Nucleated RBC % 0.1 INR (Anticoag Therapy) 1.91 H (0.89-1.11) APTT 85.1 H (26.0-36.3) seconds Sodium (133-145) mmol/L Potassium (3.5-5.0) mmol/L Chloride (101-111) mmol/L Carbon Dioxide (22-32) mmol/L Anion Gap (2-11) mmol/L BUN (6-24) mg/dL Creatinine (0.67-1.17) mg/dL Est GFR ( Amer) (>60) Est GFR (Non-Af Amer) (>60) BUN/Creatinine Ratio (8-20) Glucose (70-100) mg/dL Lactic Acid (0.5-2.0) mmol/L Calcium (8.6-10.3) mg/dL Magnesium (1.9-2.7) mg/dL Total Bilirubin (0.2-1.0) mg/dL AST (13-39) U/L ALT (7-52) U/L Alkaline Phosphatase (34-104) U/L Total Creatine Kinase (10-223) U/L CK-MB (CK-2) (0.6-6.3) ng/mL Troponin I (<0.04) ng/mL C-Reactive Protein (< 5.00) mg/L B-Natriuretic Peptide ( - 100) pg/mL Total Protein (6.4-8.9) g/dL Albumin (3.2-5.2) g/dL Globulin (2-4) g/dL Albumin/Globulin Ratio (1-3) Lipase (11.0-82.0) U/L TSH Urine Color Gisselle Urine Appearance Cloudy Urine pH 5.0 (5-9) Ur Specific [place] 1.014 (1.010-1.030) Urine Protein 2+(100 mg/dl) H (Negative) Urine Ketones Negative (Negative) Urine Blood 3+ H (Negative) Urine Nitrate Negative (Negative) Urine Bilirubin Negative (Negative) Urine Urobilinogen Negative (Negative) Ur Leukocyte Esterase Trace H (Negative) Urine WBC (Auto) Trace(0-5/hpf) (Absent) Urine RBC (Auto) 3+(>10/hpf) H (Absent) Ur Squamous Epith Cells Present H (Absent) Urine Bacteria Absent (Absent) Urine Glucose Negative (Negative) Urine Ascorbic Acid * H (Negative) Digoxin 07/14/16 07/14/16 07/14/16 Range/Units 12:05 12:05 12:05 WBC (3.5-10.8) 10^3/ul RBC (4.0-5.4) 10^6/ul Hgb (14.0-18.0) g/dl Hct (42-52) % MCV (80-94) fL MCH (27-31) pg MCHC (31-36) g/dl RDW (10.5-15) % Plt Count (150-450) 10^3/ul MPV (7.4-10.4) um3 Neut % (Auto) (38-83) % Lymph % (Auto) (25-47) % Josephine % (Auto) (1-9) % Eos % (Auto) (0-6) % Baso % (Auto) (0-2) % Absolute Neuts (auto) (1.5-7.7) 10^3/ul Absolute Lymphs (auto) (1.0-4.8) 10^3/ul Absolute Monos (auto) (0-0.8) 10^3/ul Absolute Eos (auto) (0-0.6) 10^3/ul Absolute Basos (auto) (0-0.2) 10^3/ul Absolute Nucleated RBC 10^3/ul Nucleated RBC % INR (Anticoag Therapy) (0.89-1.11) APTT (26.0-36.3) seconds Sodium 135 (133-145) mmol/L Potassium 4.2 (3.5-5.0) mmol/L Chloride 102 (101-111) mmol/L Carbon Dioxide 29 (22-32) mmol/L Anion Gap 4 (2-11) mmol/L BUN 17 (6-24) mg/dL Creatinine 1.14 (0.67-1.17) mg/dL Est GFR ( Amer) 79.3 (>60) Est GFR (Non-Af Amer) 61.7 (>60) BUN/Creatinine Ratio 14.9 (8-20) Glucose 82 (70-100) mg/dL Lactic Acid 1.4 (0.5-2.0) mmol/L Calcium 10.9 H (8.6-10.3) mg/dL Magnesium 1.7 L (1.9-2.7) mg/dL Total Bilirubin 0.60 (0.2-1.0) mg/dL AST 13 (13-39) U/L ALT 7 (7-52) U/L Alkaline Phosphatase 77 (34-104) U/L Total Creatine Kinase 17 (10-223) U/L CK-MB (CK-2) 2.6 (0.6-6.3) ng/mL Troponin I 0.02 (<0.04) ng/mL C-Reactive Protein < 1.00 (< 5.00) mg/L B-Natriuretic Peptide 224 H ( - 100) pg/mL Total Protein 6.6 (6.4-8.9) g/dL Albumin 3.6 (3.2-5.2) g/dL Globulin 3.0 (2-4) g/dL Albumin/Globulin Ratio 1.2 (1-3) Lipase < 10 L (11.0-82.0) U/L TSH Pending Urine Color Urine Appearance Urine pH (5-9) Ur Specific [place] (1.010-1.030) Urine Protein (Negative) Urine Ketones (Negative) Urine Blood (Negative) Urine Nitrate (Negative) Urine Bilirubin (Negative) Urine Urobilinogen (Negative) Ur Leukocyte Esterase (Negative) Urine WBC (Auto) (Absent) Urine RBC (Auto) (Absent) Ur Squamous Epith Cells (Absent) Urine Bacteria (Absent) Urine Glucose (Negative) Urine Ascorbic Acid (Negative) Digoxin Pending Assess/Plan/Problems-Billing Assessment: Mr. Gallego is an 81 yo male with a PMH of HTN, atrial fib, CVA, BPH, urinary retention, GERD, and GIB who presented to the ED on 3/5/17 with concern for weakness. - Patient Problems (1) Weakness Code(s): R53.1 - WEAKNESS Comment: Progressive weakness at home. Suspect deconditioning with recent UTI. Recently treated for MRSA UTI, urine culture here is negative. Bactrim d/c. No s/s of new acute infection, flu swab negative, TSH WNL, digoxin level WNL. Patient noted to be bradycardic on admission, metoprolol decreased. HR 60s-90s. No dizziness noted in pt. Trying to obtain further information re: home situation from patient's family. Nutrition consult to evaluate PO intake. PT/OT consults - will likely need [facility]IE or SNF placement (2) UTI (urinary tract infection) Comment: Secondary to MRSA and started Bactrim on 07/04. Second course of Bactrim ordered 07/13 for additional 10 days due to lack of improvement. Urine culture from 07/14 shows no growth, Bactrim stopped. (3) Urinary retention Code(s): R33.9 - RETENTION OF URINE, UNSPECIFIED Comment: With chronic indwelling catheter, recently changed in ED. Continue oxybutynin. (4) Hematuria Code(s): R31.9 - HEMATURIA, UNSPECIFIED Comment: Resolved, likely secondary to UTI. Continue outpatient urology follow-up. (5) BPH (benign prostatic hyperplasia) Code(s): N40.0 - BENIGN PROSTATIC HYPERPLASIA WITHOUT LOWER URINRY TRACT SYMP Comment: With urinary retention. Continue outpatient follow-up with urology. (6) Atrial fibrillation Code(s): I48.91 - UNSPECIFIED ATRIAL FIBRILLATION Comment: Rate controlled between 60s-100s. Continue reduced dose metoprolol, digoxin, diltiazem. Continue Pradaxa. (7) HTN (hypertension) Code(s): I10 - ESSENTIAL (PRIMARY) HYPERTENSION Comment: Normotensive, continue metoprolol at reduced dose and diltiazem with hold parameters. (8) History of CVA (cerebrovascular accident) Code(s): Z86.73 - PRSNL HX OF TIA (TIA), AND CEREB INFRC W/O RESID DEFICITS Comment: Continue Pradaxa. (9) DVT prophylaxis Code(s): GEX1772 - Comment: Pradaxa Status and Disposition: Inpatient admission. Anticipate LOS >2 days. Likely will need [facility] or SNF placement.
[2016-07-18] MEDS ORDERED: Furosemide IV* 10 MG/ML 2 ML VIAL (20 MG) IV SLOW PU ONE (16:52)
--- NOTE | 2016-07-18 17:55 | PN ---
Hospitalist Progress Note I spoke with Es Gallego, the patient's sister, in regards to the patient's progress and any other concerns. She states that it has become too difficult to care for him at home because he falls all the time; however, she was unable to elaborate on this. I did explain that the patient did have a catheter associated UTI from his chronic malloy and that has been adequately treated. However, he does demonstrate significant deconditioning and would benefit from rehab. I communicated that the patient has selected [facility]. The sister refused this placement, stating that he had been there before and that they did not take good care of him. I communicated to her that the patient had selected this out of the choices given to him. She asked for social work to call her in the morning. I discussed these concerns with the patient. He says he was at [facility] before and didn't like it, but "it doesn't matter where I go because it never helps." I asked him to make a decision, and he said that he would like to see if other facilities are available. Message left for SW to discuss placement choices with patient again tomorrow. Nursing also notified me that patient has small white bumps to his scrotum. They appear to be whiteheads. Encourage warm compresses to the area (towel dry after) and bacitracin. No significant redness or induration noted to either spot. Continue to monitor. NS 1L ordered, as patient's urine has started to darken in color again. Suspect potential trauma from pulling on malloy while on Pradaxa. Recheck CBC and BMP in AM.
[2016-07-18] MEDS ORDERED: NS 0.9% 1000 ML* 1,000 ML IV SCH (18:00)
[2016-07-18] MEDS: Bacitracin OINTMENT* 1 TUBE TOPICAL SCH (19:30)
[2016-07-18] MEDS: Senna TAB PO SCH (21:35)
[2016-07-19 06:04] LABS: Hematocrit 40 % (42-52); Mean Corpuscular HGB Conc 33 g/dl (31-36); Mean Corpuscular Hemoglobin 31 pg (27-31); Mean Corpuscular Volume 94 fL (80-94); Mean Platelet Volume 9 um3 (7.4-10.4); Red Blood Count 4.25 10^6/ul (4.0-5.4); Red Cell Distribution Width 14 % (10.5-15); White Blood Count 6.5 10^3/ul (3.5-10.8)
[2016-07-19 06:19] LABS: BUN/Creatinine Ratio 19.6 (8-20); Calcium 10.7 mg/dL (8.6-10.3); EGFR African American 85.3 (>60); EGFR Non-African American 66.3 (>60); Potassium 4.9 mmol/L (3.5-5.0)
[2016-07-19] MEDS: Oxybutynin XL TAB* 5 MG PO SCH (09:45)
[2016-07-19] MEDS: Digoxin TAB* 0.125 MG PO SCH (09:45)
[2016-07-19] MEDS: CMC:Dabigatran CAP(NF) 150 MG CAP PO SCH ×2 (09:46→23:18)
[2016-07-19] MEDS: Diltiazem CD CAP* 120 MG PO SCH (09:46)
[2016-07-19] MEDS: Cyanocobalamin TAB* 500 MCG PO SCH (09:46)
[2016-07-19] MEDS: Bacitracin OINTMENT* 1 TUBE TOPICAL SCH ×3 (09:46→23:14)
[2016-07-19] MEDS: Docusate CAP* 100 MG PO SCH ×2 (09:46→23:13)
[2016-07-19] MEDS: Metoprolol Tartrate TAB* 25 MG PO SCH ×2 (09:46→23:13)
[2016-07-19] MEDS: Polyethylene Glycol 3350* 17 GM PACKET PO SCH (09:47)
--- NOTE | 2016-07-19 15:14 | PN ---
Subjective Date of Service: 07/19/16 Interval History: patient offers no complaints. [id number] good appetite. No fevers or chills. Denies SOB or CP. No N/V/D. Family History: Unchanged from Admission Social History: Unchanged from Admission Past Medical History: Unchanged from Admission Objective Active Medications: Acetaminophen (Tylenol Tab*) 650 mg PO Q4H PRN PRN Reason: FEVER/PAIN Bacitracin (Bacitracin Ointment*) 1 applic TOPICAL TID [facility] Last Admin: 07/19/16 12:59 Dose: 1 applic Cyanocobalamin (Vitamin B12 Tab*) 1,000 mcg PO DAILY [facility] Last Admin: 07/19/16 09:46 Dose: 1,000 mcg Dabigatran (Pradaxa Cap(Nf)) 150 mg PO BID [facility] Last Admin: 07/19/16 09:46 Dose: 150 mg Digoxin (Lanoxin Tab*) 0.125 mg PO DAILY [facility] Last Admin: 07/19/16 09:45 Dose: 0.125 mg Diltiazem HCl (Cardizem Cd Cap*) 120 mg PO DAILY [facility] Last Admin: 07/19/16 09:46 Dose: 120 mg Docusate Sodium (Colace Cap*) 100 mg PO BID [facility] Last Admin: 07/19/16 09:46 Dose: 100 mg Metoprolol Tartrate (Lopressor Tab*) 12.5 mg PO Q12HR [facility] Last Admin: 07/19/16 09:46 Dose: 12.5 mg Ondansetron HCl (Zofran Inj*) 4 mg IV Q6H PRN PRN Reason: NAUSEA Oxybutynin Chloride (Ditropan Xl Tab*) 15 mg PO DAILY [facility] Last Admin: 07/19/16 09:45 Dose: 15 mg Polyethylene Glycol/Electrolytes (Miralax*) 17 gm PO DAILY [facility] Last Admin: 07/19/16 09:47 Dose: Not Given Senna (Senokot Tab*) 2 tab PO BEDTIME [facility] Last Admin: 07/18/16 21:35 Dose: 2 tab Vital Signs 07/18/16 07/18/16 07/19/16 19:44 20:00 00:15 Temperature 96.9 F 97.7 F Pulse Rate 61 66 Respiratory 20 20 16 Rate Blood Pressure 104/51 118/63 (mmHg) O2 Sat by Pulse 98 97 Oximetry 07/19/16 07/19/16 07/19/16 03:50 07:46 08:00 Temperature 97.9 F 96.7 F Pulse Rate 57 60 Respiratory 16 18 18 Rate Blood Pressure 103/52 114/61 (mmHg) O2 Sat by Pulse 97 94 Oximetry Oxygen Devices in Use Now: None Appearance: thin elderly male laying in bed resting A+O x3 in NAD Eyes: No Scleral Icterus, PERRLA Ears/Nose/Mouth/Throat: NL Teeth, Lips, Gums, Mucous Membranes Moist Neck: NL Appearance and Movements; NL JVP Respiratory: Symmetrical Chest Expansion and Respiratory Effort, Clear to Auscultation Cardiovascular: NL Sounds; No Murmurs; No JVD, RRR, No Edema Abdominal: NL Sounds; No Tenderness; No Distention Extremities: No Edema, No Clubbing, Cyanosis Skin: No Rash or Ulcers, No Nodules or Sclerosis Neurological: Alert and Oriented x 3, NL Sensation, NL Muscle Strength and Tone Lines/Tubes/Other Access: Clean, Dry and Intact Peripheral IV Nutrition: Taking PO's Result Diagrams: 07/19/16 05:55 07/19/16 05:55 Additional Lab and Data: Lab Results 07/14/16 07/14/16 07/14/16 Range/Units 12:05 12:05 12:05 WBC 6.5 (3.5-10.8) 10^3/ul RBC 4.99 (4.0-5.4) 10^6/ul Hgb 15.5 (14.0-18.0) g/dl Hct 47 (42-52) % MCV 93 (80-94) fL MCH 31 (27-31) pg MCHC 33 (31-36) g/dl RDW 15 (10.5-15) % Plt Count 142 L (150-450) 10^3/ul MPV 10 (7.4-10.4) um3 Neut % (Auto) 74.0 (38-83) % Lymph % (Auto) 13.6 L (25-47) % [place] % (Auto) 7.4 (1-9) % Eos % (Auto) 3.8 (0-6) % Baso % (Auto) 1.2 (0-2) % Absolute Neuts (auto) 4.8 (1.5-7.7) 10^3/ul Absolute Lymphs (auto) 0.9 L (1.0-4.8) 10^3/ul Absolute Monos (auto) 0.5 (0-0.8) 10^3/ul Absolute Eos (auto) 0.2 (0-0.6) 10^3/ul Absolute Basos (auto) 0.1 (0-0.2) 10^3/ul Absolute Nucleated RBC 0 10^3/ul Nucleated RBC % 0.1 INR (Anticoag Therapy) 1.91 H (0.89-1.11) APTT 85.1 H (26.0-36.3) seconds Sodium (133-145) mmol/L Potassium (3.5-5.0) mmol/L Chloride (101-111) mmol/L Carbon Dioxide (22-32) mmol/L Anion Gap (2-11) mmol/L BUN (6-24) mg/dL Creatinine (0.67-1.17) mg/dL Est GFR ( Amer) (>60) Est GFR (Non-Af Amer) (>60) BUN/Creatinine Ratio (8-20) Glucose (70-100) mg/dL Lactic Acid (0.5-2.0) mmol/L Calcium (8.6-10.3) mg/dL Magnesium (1.9-2.7) mg/dL Total Bilirubin (0.2-1.0) mg/dL AST (13-39) U/L ALT (7-52) U/L Alkaline Phosphatase (34-104) U/L Total Creatine Kinase (10-223) U/L CK-MB (CK-2) (0.6-6.3) ng/mL Troponin I (<0.04) ng/mL C-Reactive Protein (< 5.00) mg/L B-Natriuretic Peptide ( - 100) pg/mL Total Protein (6.4-8.9) g/dL Albumin (3.2-5.2) g/dL Globulin (2-4) g/dL Albumin/Globulin Ratio (1-3) Lipase (11.0-82.0) U/L TSH Urine Color Sofia Urine Appearance Cloudy Urine pH 5.0 (5-9) Ur Specific [place] 1.014 (1.010-1.030) Urine Protein 2+(100 mg/dl) H (Negative) Urine Ketones Negative (Negative) Urine Blood 3+ H (Negative) Urine Nitrate Negative (Negative) Urine Bilirubin Negative (Negative) Urine Urobilinogen Negative (Negative) Ur Leukocyte Esterase Trace H (Negative) Urine WBC (Auto) Trace(0-5/hpf) (Absent) Urine RBC (Auto) 3+(>10/hpf) H (Absent) Ur Squamous Epith Cells Present H (Absent) Urine Bacteria Absent (Absent) Urine Glucose Negative (Negative) Urine Ascorbic Acid * H (Negative) Digoxin 07/14/16 07/14/16 07/14/16 Range/Units 12:05 12:05 12:05 WBC (3.5-10.8) 10^3/ul RBC (4.0-5.4) 10^6/ul Hgb (14.0-18.0) g/dl Hct (42-52) % MCV (80-94) fL MCH (27-31) pg MCHC (31-36) g/dl RDW (10.5-15) % Plt Count (150-450) 10^3/ul MPV (7.4-10.4) um3 Neut % (Auto) (38-83) % Lymph % (Auto) (25-47) % [place] % (Auto) (1-9) % Eos % (Auto) (0-6) % Baso % (Auto) (0-2) % Absolute Neuts (auto) (1.5-7.7) 10^3/ul Absolute Lymphs (auto) (1.0-4.8) 10^3/ul Absolute Monos (auto) (0-0.8) 10^3/ul Absolute Eos (auto) (0-0.6) 10^3/ul Absolute Basos (auto) (0-0.2) 10^3/ul Absolute Nucleated RBC 10^3/ul Nucleated RBC % INR (Anticoag Therapy) (0.89-1.11) APTT (26.0-36.3) seconds Sodium 135 (133-145) mmol/L Potassium 4.2 (3.5-5.0) mmol/L Chloride 102 (101-111) mmol/L Carbon Dioxide 29 (22-32) mmol/L Anion Gap 4 (2-11) mmol/L BUN 17 (6-24) mg/dL Creatinine 1.14 (0.67-1.17) mg/dL Est GFR ( Amer) 79.3 (>60) Est GFR (Non-Af Amer) 61.7 (>60) BUN/Creatinine Ratio 14.9 (8-20) Glucose 82 (70-100) mg/dL Lactic Acid 1.4 (0.5-2.0) mmol/L Calcium 10.9 H (8.6-10.3) mg/dL Magnesium 1.7 L (1.9-2.7) mg/dL Total Bilirubin 0.60 (0.2-1.0) mg/dL AST 13 (13-39) U/L ALT 7 (7-52) U/L Alkaline Phosphatase 77 (34-104) U/L Total Creatine Kinase 17 (10-223) U/L CK-MB (CK-2) 2.6 (0.6-6.3) ng/mL Troponin I 0.02 (<0.04) ng/mL C-Reactive Protein < 1.00 (< 5.00) mg/L B-Natriuretic Peptide 224 H ( - 100) pg/mL Total Protein 6.6 (6.4-8.9) g/dL Albumin 3.6 (3.2-5.2) g/dL Globulin 3.0 (2-4) g/dL Albumin/Globulin Ratio 1.2 (1-3) Lipase < 10 L (11.0-82.0) U/L TSH Pending Urine Color Urine Appearance Urine pH (5-9) Ur Specific [place] (1.010-1.030) Urine Protein (Negative) Urine Ketones (Negative) Urine Blood (Negative) Urine Nitrate (Negative) Urine Bilirubin (Negative) Urine Urobilinogen (Negative) Ur Leukocyte Esterase (Negative) Urine WBC (Auto) (Absent) Urine RBC (Auto) (Absent) Ur Squamous Epith Cells (Absent) Urine Bacteria (Absent) Urine Glucose (Negative) Urine Ascorbic Acid (Negative) Digoxin Pending Assess/Plan/Problems-Billing Assessment: Mr. Gallego is an 81 yo male with a PMH of HTN, atrial fib, CVA, BPH, urinary retention, GERD, and GIB who presented to the ED on 07/15/16 with concern for weakness. - Patient Problems (1) Weakness Comment: Progressive weakness at home. Suspect deconditioning with recent UTI. Recently treated for MRSA UTI, urine culture here is negative. Bactrim d/c. No s/s of new acute infection, flu swab negative, TSH WNL, digoxin level WNL. Patient noted to be bradycardic on admission, metoprolol decreased. HR 60s-90s. No Plan for subacute placement (2) UTI (urinary tract infection) Comment: Secondary to MRSA and started Bactrim on 07/04. Second course of Bactrim ordered 07/13 for additional 10 days due to lack of improvement. Urine culture from 07/14 shows no growth, Bactrim stopped. (3) Atrial fibrillation Comment: Rate controlled between 60s-100s. Continue reduced dose metoprolol, digoxin, diltiazem. Continue Pradaxa. (4) HTN (hypertension) Comment: Normotensive, continue metoprolol at reduced dose and diltiazem with hold parameters. (5) Hematuria Comment: Resolved, likely secondary to UTI. Continue outpatient urology follow-up. (6) History of CVA (cerebrovascular accident) Comment: Continue Pradaxa. (7) Urinary retention Comment: With chronic indwelling catheter, recently changed in ED. Continue oxybutynin. (8) BPH (benign prostatic hyperplasia) Comment: With urinary retention. Continue outpatient follow-up with urology. (9) DVT prophylaxis Comment: Pradaxa Status and Disposition: Inpatient admission. Plan for subacute rehab at [facility].
[2016-07-19] MEDS: Senna TAB PO SCH (23:13)
--- NOTE | 2016-07-20 05:13 | DS ---
DISCHARGE SUMMARY: DATE OF ADMISSION: 07/14/16 DATE OF DISCHARGE: 07/20/16 PROVIDER: Debi Lanier NP ATTENDING PHYSICIAN: Dr. Hutchison *(report dictated by Debi Lanier NP) PRIMARY CARE PROVIDER: Dr. Juan Connell. Transfer to [facility] in [place], [place]. PRIMARY DIAGNOSES: 1. Weakness, suspect deconditioning secondary to recent MRSA urinary tract infection. 2. Urinary retention resolved with malloy exchange 3. Hematuria. 4. Intermittent mild hypercalcemia, chronic and noted since 2013 with normal Vitamin D levels in 2013 - no record of PTH - sent PTH, Vitamin D and PSA today , is pending at this time. SECONDARY DIAGNOSES: 1. Atrial fibrillation, on Pradaxa. 2. Hypertension. 3. History of cerebrovascular accident. 4. Benign prostatic hyperplasia. with urinary retention and chronic malloy catheter with Hx of PSA 7 (2013) 5. Gastroesophageal reflux disease. DISCHARGE MEDICATIONS: 1. Metoprolol tartrate 12.5 mg p.o. b.i.d. This was reduced from 12.5 mg p.o. b.i.d. 2. Digoxin 0.125 mg p.o. daily. 3. Pradaxa 150 mg p.o. b.i.d. 4. Cardizem 120 mg p.o. daily. 5. Colace 100 mg p.o. b.i.d. 6. Vitamin B12 1000 mcg p.o. daily. 7. Ditropan XL 15 mg p.o. daily. 8. MiraLAX 17 g p.o. daily p.r.n. HISTORY OF PRESENT ILLNESS AND HOSPITAL COURSE: Please see history and physical by Jean-Pierre Leigh NP, for full admission details, but in summary, this is an 81-year- old male who presents to the emergency department on 07/14/16 from home with concern for generalized weakness. The patient has a history of recurrent urinary tract infections, most recently 06/22/16, in which he was diagnosed with an MRSA urinary tract infection and in which he finished a course of Bactrim. Per his sister who is his primary caregiver, she had concern for progressing worsening weakness and noted that the patient had difficulty standing or walking independently. She called 911 and was brought to the emergency department to be evaluated. In the emergency department, he was found to have an abnormal urinalysis. Due to his recent history of MRSA UTI , he was started on Bactrim on admission. The patient denied any recent fevers , chills, shortness of breath, chest pain, or cough. The patient's urine culture did result as negative with no growth. The patient's Bactrim was discontinued and it was thought the patient has overall deconditioning from his prior urinary tract infection. The patient was seen and evaluated by Physical Therapy who noted the person to be a max assist, has poor ability, an is noted to have an unsteady gait, unsafe to return home. Recommendation was for subacute rehab. On admission, the patient was noted to have hematuria which resolved, he is also on Pradaxa, however the hematuria resolved and the Pradaxa was continued. There was concern initially on admission for urinary retention. The patient has a chronic indwelling Malloy catheter, which was exchanged in the emergency department, which resolved the retention. The patient was continued on his Pradaxa and did not initially present with anemia, but is noted to have a slight drop in his hemoglobin and hematocrit, thought to be secondary to IV fluids that were administered and is HH has remained stable. On admission, the patient was noted to be bradycardic with a heart rate in the 40s and 50s. His metoprolol was decreased from 25 mg p.o. b.i.d. to 12.5 mg p.o. b.i.d. with resolution of his bradycardia. The patient has remained afebrile throughout hospitalization. He has had no leukocytosis. Initially on admission, was noted to have a magnesium of 1.7 for which he received replacement, but otherwise his labs have been unremarkable. He was negative for influenza A and B. Again, it was thought that the patient was overall declining is secondary to his acute illness from the MRSA urinary tract infection last month. Plan will be for subacute rehab and see if the patient can return to her home. Please note the patient has not been very active and or proactive with his care. He most likely suffers from some dementia. DIAGNOSTIC TESTING: Brain CT, 07/14/16, impression: 1. No evidence for acute finding. 2. Atrophy, multiple old lacunar infarcts, and findings consistent with chronic small vessel ischemic changes. Chest x-ray, 07/14/16, impression: No evidence for acute findings. DISCHARGE PLAN: 1. Plan for the patient to be discharged to [facility] in [place], [place], for subacute rehab. 2. The patients malloy was exchanged 07/14/16 and will need to be changed in 3-4 weeks. 3. Continue PT/OT 4. Follow up hypercalcemia - sent PTH, Vitamin D and PSA labs today and is pending. 5. Follow up with Urology TIME SPENT: Approximately 60 minutes was spent on this discharge. DEBI LANIER NP CC: Dr. Juan Connell* [id number]/[facility] #: [id number] SON
[2016-07-20 07:50] VITALS: BP 117/62
[2016-07-20] MEDS: Polyethylene Glycol 3350* 17 GM PACKET PO SCH (07:55)
[2016-07-20] MEDS: CMC:Dabigatran CAP(NF) 150 MG CAP PO SCH (07:56)
[2016-07-20] MEDS: Digoxin TAB* 0.125 MG PO SCH (07:56)
[2016-07-20] MEDS: Docusate CAP* 100 MG PO SCH (07:56)
[2016-07-20] MEDS: Diltiazem CD CAP* 120 MG PO SCH (07:56)
[2016-07-20] MEDS: Cyanocobalamin TAB* 500 MCG PO SCH (07:56)
[2016-07-20] MEDS: Metoprolol Tartrate TAB* 25 MG PO SCH (07:56)
[2016-07-20] MEDS: Oxybutynin XL TAB* 5 MG PO SCH (07:56)
[2016-07-20] MEDS: Bacitracin OINTMENT* 1 TUBE TOPICAL SCH (08:03)
--- NOTE | 2016-07-20 08:30 | DCNOTE ---
Subjective Date of Service: 07/20/16 Interval History: Pt agrees agrees to subacute rehab as he reports he continues to have generalized weakness. Offers no other complaints. Denies SOB or CP. Per nursing staff he is not very motivated to get OOB. Family History: Unchanged from Admission Social History: Unchanged from Admission Past Medical History: Unchanged from Admission Objective Active Medications: Acetaminophen (Tylenol Tab*) 650 mg PO Q4H PRN PRN Reason: FEVER/PAIN Bacitracin (Bacitracin Ointment*) 1 applic TOPICAL TID [facility] Last Admin: 07/20/16 08:03 Dose: 1 applic Cyanocobalamin (Vitamin B12 Tab*) 1,000 mcg PO DAILY [facility] Last Admin: 07/20/16 07:56 Dose: 1,000 mcg Dabigatran (Pradaxa Cap(Nf)) 150 mg PO BID [facility] Last Admin: 07/20/16 07:56 Dose: 150 mg Digoxin (Lanoxin Tab*) 0.125 mg PO DAILY [facility] Last Admin: 07/20/16 07:56 Dose: 0.125 mg Diltiazem HCl (Cardizem Cd Cap*) 120 mg PO DAILY [facility] Last Admin: 07/20/16 07:56 Dose: 120 mg Docusate Sodium (Colace Cap*) 100 mg PO BID [facility] Last Admin: 07/20/16 07:56 Dose: 100 mg Metoprolol Tartrate (Lopressor Tab*) 12.5 mg PO Q12HR [facility] Last Admin: 07/20/16 07:56 Dose: 12.5 mg Ondansetron HCl (Zofran Inj*) 4 mg IV Q6H PRN PRN Reason: NAUSEA Oxybutynin Chloride (Ditropan Xl Tab*) 15 mg PO DAILY [facility] Last Admin: 07/20/16 07:56 Dose: 15 mg Polyethylene Glycol/Electrolytes (Miralax*) 17 gm PO DAILY [facility] Last Admin: 07/20/16 07:55 Dose: 17 gm Senna (Senokot Tab*) 2 tab PO BEDTIME [facility] Last Admin: 07/19/16 23:13 Dose: 2 tab Vital Signs 07/19/16 07/19/16 07/19/16 15:21 19:56 20:00 Temperature 98.0 F 97.6 F Pulse Rate 72 74 Respiratory 22 20 20 Rate Blood Pressure 94/48 113/57 (mmHg) O2 Sat by Pulse 92 99 Oximetry 07/19/16 07/20/16 07/20/16 23:32 07:27 08:20 Temperature 98.6 F Pulse Rate 116 62 Respiratory 19 16 18 Rate Blood Pressure 121/70 117/62 (mmHg) O2 Sat by Pulse 98 97 Oximetry Oxygen Devices in Use Now: None Appearance: eldelry male laying in bed in NAD. A+O x3. noted mild dementia Eyes: No Scleral Icterus, PERRLA Ears/Nose/Mouth/Throat: NL Teeth, Lips, Gums, Mucous Membranes Moist Neck: NL Appearance and Movements; NL JVP Respiratory: Symmetrical Chest Expansion and Respiratory Effort, Clear to Auscultation Cardiovascular: NL Sounds; No Murmurs; No JVD, RRR, No Edema Abdominal: NL Sounds; No Tenderness; No Distention Extremities: No Edema, No Clubbing, Cyanosis Skin: No Rash or Ulcers, No Nodules or Sclerosis Neurological: Alert and Oriented x 3, NL Sensation, NL Muscle Strength and Tone Lines/Tubes/Other Access: Clean, Dry and Intact Peripheral IV Nutrition: Taking PO's Result Diagrams: 07/19/16 05:55 07/19/16 05:55 Additional Lab and Data: Lab Results 07/14/16 07/14/16 07/14/16 Range/Units 12:05 12:05 12:05 WBC 6.5 (3.5-10.8) 10^3/ul RBC 4.99 (4.0-5.4) 10^6/ul Hgb 15.5 (14.0-18.0) g/dl Hct 47 (42-52) % MCV 93 (80-94) fL MCH 31 (27-31) pg MCHC 33 (31-36) g/dl RDW 15 (10.5-15) % Plt Count 142 L (150-450) 10^3/ul MPV 10 (7.4-10.4) um3 Neut % (Auto) 74.0 (38-83) % Lymph % (Auto) 13.6 L (25-47) % [place] % (Auto) 7.4 (1-9) % Eos % (Auto) 3.8 (0-6) % Baso % (Auto) 1.2 (0-2) % Absolute Neuts (auto) 4.8 (1.5-7.7) 10^3/ul Absolute Lymphs (auto) 0.9 L (1.0-4.8) 10^3/ul Absolute Monos (auto) 0.5 (0-0.8) 10^3/ul Absolute Eos (auto) 0.2 (0-0.6) 10^3/ul Absolute Basos (auto) 0.1 (0-0.2) 10^3/ul Absolute Nucleated RBC 0 10^3/ul Nucleated RBC % 0.1 INR (Anticoag Therapy) 1.91 H (0.89-1.11) APTT 85.1 H (26.0-36.3) seconds Sodium (133-145) mmol/L Potassium (3.5-5.0) mmol/L Chloride (101-111) mmol/L Carbon Dioxide (22-32) mmol/L Anion Gap (2-11) mmol/L BUN (6-24) mg/dL Creatinine (0.67-1.17) mg/dL Est GFR ( Amer) (>60) Est GFR (Non-Af Amer) (>60) BUN/Creatinine Ratio (8-20) Glucose (70-100) mg/dL Lactic Acid (0.5-2.0) mmol/L Calcium (8.6-10.3) mg/dL Magnesium (1.9-2.7) mg/dL Total Bilirubin (0.2-1.0) mg/dL AST (13-39) U/L ALT (7-52) U/L Alkaline Phosphatase (34-104) U/L Total Creatine Kinase (10-223) U/L CK-MB (CK-2) (0.6-6.3) ng/mL Troponin I (<0.04) ng/mL C-Reactive Protein (< 5.00) mg/L B-Natriuretic Peptide ( - 100) pg/mL Total Protein (6.4-8.9) g/dL Albumin (3.2-5.2) g/dL Globulin (2-4) g/dL Albumin/Globulin Ratio (1-3) Lipase (11.0-82.0) U/L TSH Urine Color Sofia Urine Appearance Cloudy Urine pH 5.0 (5-9) Ur Specific [place] 1.014 (1.010-1.030) Urine Protein 2+(100 mg/dl) H (Negative) Urine Ketones Negative (Negative) Urine Blood 3+ H (Negative) Urine Nitrate Negative (Negative) Urine Bilirubin Negative (Negative) Urine Urobilinogen Negative (Negative) Ur Leukocyte Esterase Trace H (Negative) Urine WBC (Auto) Trace(0-5/hpf) (Absent) Urine RBC (Auto) 3+(>10/hpf) H (Absent) Ur Squamous Epith Cells Present H (Absent) Urine Bacteria Absent (Absent) Urine Glucose Negative (Negative) Urine Ascorbic Acid * H (Negative) Digoxin 07/14/16 07/14/16 07/14/16 Range/Units 12:05 12:05 12:05 WBC (3.5-10.8) 10^3/ul RBC (4.0-5.4) 10^6/ul Hgb (14.0-18.0) g/dl Hct (42-52) % MCV (80-94) fL MCH (27-31) pg MCHC (31-36) g/dl RDW (10.5-15) % Plt Count (150-450) 10^3/ul MPV (7.4-10.4) um3 Neut % (Auto) (38-83) % Lymph % (Auto) (25-47) % [place] % (Auto) (1-9) % Eos % (Auto) (0-6) % Baso % (Auto) (0-2) % Absolute Neuts (auto) (1.5-7.7) 10^3/ul Absolute Lymphs (auto) (1.0-4.8) 10^3/ul Absolute Monos (auto) (0-0.8) 10^3/ul Absolute Eos (auto) (0-0.6) 10^3/ul Absolute Basos (auto) (0-0.2) 10^3/ul Absolute Nucleated RBC 10^3/ul Nucleated RBC % INR (Anticoag Therapy) (0.89-1.11) APTT (26.0-36.3) seconds Sodium 135 (133-145) mmol/L Potassium 4.2 (3.5-5.0) mmol/L Chloride 102 (101-111) mmol/L Carbon Dioxide 29 (22-32) mmol/L Anion Gap 4 (2-11) mmol/L BUN 17 (6-24) mg/dL Creatinine 1.14 (0.67-1.17) mg/dL Est GFR ( Amer) 79.3 (>60) Est GFR (Non-Af Amer) 61.7 (>60) BUN/Creatinine Ratio 14.9 (8-20) Glucose 82 (70-100) mg/dL Lactic Acid 1.4 (0.5-2.0) mmol/L Calcium 10.9 H (8.6-10.3) mg/dL Magnesium 1.7 L (1.9-2.7) mg/dL Total Bilirubin 0.60 (0.2-1.0) mg/dL AST 13 (13-39) U/L ALT 7 (7-52) U/L Alkaline Phosphatase 77 (34-104) U/L Total Creatine Kinase 17 (10-223) U/L CK-MB (CK-2) 2.6 (0.6-6.3) ng/mL Troponin I 0.02 (<0.04) ng/mL C-Reactive Protein < 1.00 (< 5.00) mg/L B-Natriuretic Peptide 224 H ( - 100) pg/mL Total Protein 6.6 (6.4-8.9) g/dL Albumin 3.6 (3.2-5.2) g/dL Globulin 3.0 (2-4) g/dL Albumin/Globulin Ratio 1.2 (1-3) Lipase < 10 L (11.0-82.0) U/L TSH Pending Urine Color Urine Appearance Urine pH (5-9) Ur Specific [place] (1.010-1.030) Urine Protein (Negative) Urine Ketones (Negative) Urine Blood (Negative) Urine Nitrate (Negative) Urine Bilirubin (Negative) Urine Urobilinogen (Negative) Ur Leukocyte Esterase (Negative) Urine WBC (Auto) (Absent) Urine RBC (Auto) (Absent) Ur Squamous Epith Cells (Absent) Urine Bacteria (Absent) Urine Glucose (Negative) Urine Ascorbic Acid (Negative) Digoxin Pending Assess/Plan/Problems-Billing Assessment: Mr. Gallego is an 81 yo male with a PMH of HTN, atrial fib, CVA, BPH, urinary retention, GERD, and GIB who presented to the ED on 07/15/16 with concern for weakness. - Patient Problems (1) Weakness Comment: Progressive weakness at home. Suspect deconditioning with recent MRSA UTI treated with Bactrim. . Urine culture here is negative. No s/s of new acute infection, flu swab negative, TSH WNL, digoxin level WNL. Patient noted to be bradycardic on admission, metoprolol decreased. HR 60s-90s. Plan for subacute placement (2) UTI (urinary tract infection) Comment: Resolved. Secondary to MRSA and started Bactrim on 07/04 - finished course Urine culture from 07/14 shows no growth (3) Atrial fibrillation Comment: Rate controlled between 60s-100s. Continue reduced dose metoprolol, digoxin, diltiazem. Continue Pradaxa. (4) HTN (hypertension) Comment: Normotensive, continue metoprolol at reduced dose and diltiazem with hold parameters. (5) Hematuria Comment: Resolved quickly, likely secondary to pradaxa. Continue outpatient urology follow-up. (6) History of CVA (cerebrovascular accident) Comment: Continue Pradaxa. (7) Urinary retention Comment: With chronic indwelling catheter, changed in ED on admission. Continue oxybutynin. (8) BPH (benign prostatic hyperplasia) Comment: With hx urinary retention and chronic malloy placement. Known elevated PSA 7 in 2013; send PSA Continue outpatient follow-up with urology. (9) Hypercalcemia Comment: - mildly elevated going back to 2013. Normal Vitamin D and Elevated PSA of 7 in 2013, no noted PTH in our system. - will send PTH, Vit D and PSA (10) DVT prophylaxis Comment: Pradaxa Status and Disposition: Inpatient admission. Plan for subacute rehab at [facility] home discharged today
[2016-07-20 11:09] LABS: Calcium (PTH Intact) 10.4 mg/dL (8.6-10.3)
== END 2016-07-20 11:00 | DRG 948 ==
LOC: ED 11:15 → MED 13:13 → OBSVTOIN 13:51 → INTOOBSV 13:51 → MED 07-15 08:24
PROVIDERS: ADMIT Internal Medicine; ATTEND Hospitalist
PROC: 0T2BX0Z Change Drainage Device in Bladder, External Approach (ICD-10-PCS; principal; 2016-07-14)
DX: R53.1 Weakness (principal); E83.52 Hypercalcemia; R00.1 Bradycardia, unspecified; R31.9 Hematuria, unspecified; I48.91 Unspecified atrial fibrillation; I10 Essential (primary) hypertension; Z86.73 Personal history of transient ischemic attack (TIA), and cerebral infarction without residual deficits; J45.909 Unspecified asthma, uncomplicated; K21.9 Gastro-esophageal reflux disease without esophagitis; N40.1 Benign prostatic hyperplasia with lower urinary tract symptoms; R33.8 Other retention of urine; Z87.440 Personal history of urinary (tract) infections; T45.515A Adverse effect of anticoagulants, initial encounter; Z79.01 Long term (current) use of anticoagulants
CPT/HCPCS: 36415; 70450; 71010; 80048; 80053; 80162; 81003; 81015; 82306; 82550; 82553; 82652; 83605; 83690; 83735; 83880; 83970; 84153; 84443; 84484; 85025; 85610; 85730; 86140; 87086; 87502; 93005; A9270-GY; G0103